=== PATIENT | male | born 1960 | race Caucasian/White ===

== ENCOUNTER 2019-03-25 23:42 | Emergency (ER) | payer MEDICARE, MEDICAID ==
[~2019-03-25] VITALS: Ht 172.7 cm; Wt 90.0 kg
[~2019-03-25 23:42] MED LIST: AZIT500T34 PO; BAC10T PO; CODE118S2 PO; GUAI600T45 PO; OMEP-84 PO; PRED10TA14 PO
[2019-03-26 00:36] LABS: BASOPHILS # (AUTO) 0.2 X10'3 (0-0.2); EOSINOPHILS # (AUTO) 0.2 X10'3 (0-0.9); EOSINOPHILS % (AUTO) 1.9 % (0-6); HEMATOCRIT 41.3 % (42.0-52.0); LYMPHOCYTES # (AUTO) 4.2 X10'3 (1.1-4.8); LYMPHOCYTES % (AUTO) 37.2 % (21-51); MEAN CORPUSCULAR VOLUME 85.5 FL (78-98); MEAN PLATELET VOLUME 9.1 FL (7.4-10.4); NEUTROPHILS # (AUTO) 5.6 X10'3 (1.8-7.7); NEUTROPHILS % (AUTO) 49.9 % (42-75); PLATELET COUNT 245 X10'3 (140-440); RED BLOOD COUNT 4.83 X10'6 (4.70-6.10); RED CELL DISTRIBUTION WIDTH 13.9 % (11.5-14.5); WHITE BLOOD COUNT 11.2 X10'3 (4.5-11.0)
[2019-03-26 00:47] LABS: ALANINE AMINOTRANSFERASE 42 U/L (12-78); ALBUMIN 3.5 G/DL (3.4-5.0); ALBUMIN/GLOBULIN RATIO 1.1 (1.1-1.5); ALKALINE PHOSPHATASE 143 IU/L (46-116); ANION GAP 8 (8-16); ASPARTATE AMINO TRANSFERASE 28 U/L (10-37); BILIRUBIN,TOTAL 0.4 MG/DL (0.1-1.0); BLOOD UREA NITROGEN 12 MG/DL (7-18); BUN/CREATININE RATIO 12.5 (5.4-32.0); CALCIUM 8.2 MG/DL (8.5-10.1); CHLORIDE 108 MMOL/L (99-107); CREATININE 0.96 MG/DL (0.60-1.10); GLUCOSE 97 MG/DL (70-104); POTASSIUM 3.8 MMOL/L (3.5-5.1); SODIUM 139 MMOL/L (135-145); TOTAL CARBON DIOXIDE 22.8 MMOL/L (24-32); TOTAL PROTEIN 6.7 G/DL (6.4-8.2); eGFR 80 ML/MIN
[2019-03-26] MEDS ORDERED: aspirin 325mg tablet PO ONE (00:50)
[2019-03-26 00:53] LABS: PARTIAL THROMBOPLASTIN TIME 29 SECONDS (22-32)
[2019-03-26 01:33] VITALS: BP 171/92
== END 2019-03-26 01:34 | disposition home or self-care (01) ==
LOC: ER 23:42
DX: R07.89 Other chest pain (principal); R42 Dizziness and giddiness; I10 Essential (primary) hypertension; E78.00 Pure hypercholesterolemia, unspecified; K21.9 Gastro-esophageal reflux disease without esophagitis; M19.90 Unspecified osteoarthritis, unspecified site; F17.200 Nicotine dependence, unspecified, uncomplicated; Z88.6 Allergy status to analgesic agent
CPT/HCPCS: 36415; 71045; 80053; 84484; 85025; 85610; 85730; 93005; 99284

== ENCOUNTER 2020-02-17 20:44 | Emergency (ER) | payer MEDICARE, OTHER ==
[~2020-02-17] VITALS: Ht 172.7 cm; Wt 89.3 kg
[2020-02-17 21:19] LABS: BASOPHILS # (AUTO) 0.1 X10'3 (0-0.2); BASOPHILS % (AUTO) 0.9 % (0-1); EOSINOPHILS # (AUTO) 0.1 X10'3 (0-0.9); EOSINOPHILS % (AUTO) 1.4 % (0-6); HEMATOCRIT 42.4 % (42.0-52.0); HEMOGLOBIN 14.4 g/dl (14.0-17.9); LYMPHOCYTES # (AUTO) 3.1 X10'3 (1.1-4.8); LYMPHOCYTES % (AUTO) 32.7 % (21-51); MEAN CORPUSCULAR HEMOGLOBIN 29.5 PG (27.0-31.0); MEAN CORPUSCULAR VOLUME 86.8 FL (78-98); MEAN PLATELET VOLUME 8.7 FL (7.4-10.4); MONOCYTES % (AUTO) 10.2 % (2-12); NEUTROPHILS # (AUTO) 5.2 X10'3 (1.8-7.7); NEUTROPHILS % (AUTO) 54.8 % (42-75); PLATELET COUNT 214 X10'3 (140-440); RED BLOOD COUNT 4.89 X10'6 (4.70-6.10); RED CELL DISTRIBUTION WIDTH 13.5 % (11.5-14.5); WHITE BLOOD COUNT 9.5 X10'3 (4.5-11.0)
[2020-02-17 21:27] LABS: ALANINE AMINOTRANSFERASE 39 U/L (12-78); ALBUMIN 3.6 G/DL (3.4-5.0); ALBUMIN/GLOBULIN RATIO 1.2 (1.1-1.5); ALKALINE PHOSPHATASE 130 IU/L (46-116); ANION GAP 8 (8-16); ASPARTATE AMINO TRANSFERASE 27 U/L (10-37); BILIRUBIN,TOTAL 0.5 MG/DL (0.1-1.0); BLOOD UREA NITROGEN 9 MG/DL (7-18); BUN/CREATININE RATIO 8.8 (5.4-32.0); CALCIUM 8.6 MG/DL (8.5-10.1); CHLORIDE 109 MMOL/L (99-107); CREATININE 1.02 MG/DL (0.60-1.10); GLUCOSE 104 MG/DL (70-104); POTASSIUM 4.1 MMOL/L (3.5-5.1); SODIUM 142 MMOL/L (135-145); TOTAL CARBON DIOXIDE 25.3 MMOL/L (24-32); TOTAL PROTEIN 6.7 G/DL (6.4-8.2); eGFR 74 ML/MIN
[2020-02-17] MEDS ORDERED: metoprolol tartrate 50mg tablet PO ONE (21:35)
[2020-02-17] MEDS ORDERED: metoprolol tartrate 25mg tablet PO ONE (21:35)
[2020-02-17 22:47] VITALS: BP 199/94
== END 2020-02-17 22:40 | disposition home or self-care (01) ==
LOC: ER 20:44
DX: I10 Essential (primary) hypertension (principal); E78.00 Pure hypercholesterolemia, unspecified; K21.9 Gastro-esophageal reflux disease without esophagitis; M19.90 Unspecified osteoarthritis, unspecified site; E78.5 Hyperlipidemia, unspecified; Z88.5 Allergy status to narcotic agent; Z79.2 Long term (current) use of antibiotics; Z79.899 Other long term (current) drug therapy
CPT/HCPCS: 36415; 71045; 80053; 84484; 85025; 93005; 99285

== ENCOUNTER 2022-01-03 08:30 | Inpatient (IN) | payer MEDICARE, MEDICAID ==
[~2022-01-03] VITALS: Ht 175.3 cm; Wt 89.5 kg
[2022-01-03] MEDS ORDERED: metoclopramide 5 mg/ml inj IV ONE (08:55)
[2022-01-03] MEDS ORDERED: famotidine/PF 10 mg/ml inj IV ONE (08:55)
[2022-01-03] MEDS ORDERED: morphine 4 MG/ML inj SYRINge IV ONE (08:55)
[2022-01-03 08:59] LABS: BASOPHILS # (AUTO) 0.1 X10'3 (0-0.2); BASOPHILS % (AUTO) 0.6 % (0-1); EOSINOPHILS % (AUTO) 0.1 % (0-6); HEMATOCRIT 41.6 % (42.0-52.0); LYMPHOCYTES # (AUTO) 1.3 X10'3 (1.1-4.8); LYMPHOCYTES % (AUTO) 8.4 % (21-51); MEAN CORPUSCULAR HEMOGLOBIN 29.6 PG (27.0-31.0); MEAN CORPUSCULAR HGB CONC 33.6 g/dL (33.0-36.5); MEAN CORPUSCULAR VOLUME 87.9 FL (78-98); MEAN PLATELET VOLUME 9.2 FL (7.4-10.4); MONOCYTES # (AUTO) 0.5 X10'3 (0-0.9); NEUTROPHILS % (AUTO) 87.9 % (42-75); PLATELET COUNT 251 X10'3 (140-440); RED BLOOD COUNT 4.73 X10'6 (4.70-6.10); RED CELL DISTRIBUTION WIDTH 13.8 % (11.5-14.5); WHITE BLOOD COUNT 15.9 X10'3 (4.5-11.0)
[2022-01-03 09:12] LABS: ALANINE AMINOTRANSFERASE 32 U/L (12-78); ALBUMIN 3.4 G/DL (3.4-5.0); ALBUMIN/GLOBULIN RATIO 0.9 (1.1-1.5); ANION GAP 13 (8-16); ASPARTATE AMINO TRANSFERASE 21 U/L (10-37); BILIRUBIN,TOTAL 0.3 MG/DL (0.1-1.0); BLOOD UREA NITROGEN 8 MG/DL (7-18); CALCIUM 8.4 MG/DL (8.5-10.1); CHLORIDE 106 MMOL/L (99-107); GLUCOSE 124 MG/DL (70-104); POTASSIUM 3.6 MMOL/L (3.5-5.1); SODIUM 142 MMOL/L (135-145); TOTAL CARBON DIOXIDE 23.4 MMOL/L (24-32); TOTAL PROTEIN 7.2 G/DL (6.4-8.2); eGFR > 90 ML/MIN
[2022-01-03 09:19] LABS: ALKALINE PHOSPHATASE 133 IU/L (46-116)
[2022-01-03 09:45] LABS: LIPASE 61 U/L (73-393)
[2022-01-03] MEDS ORDERED: piperacillin/tazo 3.375gm/50ml 50 ML IV ONE (10:00)
[2022-01-03] MEDS ORDERED: morphine 4 MG/ML inj SYRINge IV PRN (10:10)
[2022-01-03] MEDS ORDERED: ondansetron/PF 4mg/2ml inj IV ONE (10:10)
[2022-01-03] MEDS ORDERED: HYDROmorphone/PF 0.2 MG/ML SYRINGE IV PRN (11:10)
[2022-01-03] MEDS ORDERED: hydrALAZINE 20mg/ml inj. IV PRN (11:10)
[2022-01-03] MEDS ORDERED: magnesium 2GM in 50ml NS 50 ML IV PRN (11:10)
[2022-01-03] MEDS ORDERED: potassium Cl 20 mEq SR tablet PO PRN ×2 (11:10)
[2022-01-03] MEDS ORDERED: potassium CL 10mEq/100ml bag 100 ML IV PRN (11:10)
[2022-01-03] MEDS ORDERED: magnesium 4gm in 100ml NS 100 ML IV PRN (11:10)
[2022-01-03] MEDS ORDERED: HYDROmorphone inj. 0.5 MG/0.5 ML DISP.SYRIN IV PRN (11:10)
[2022-01-03] MEDS ORDERED: ondansetron/PF 4mg/2ml inj IV PRN (11:10)
[2022-01-03] MEDS ORDERED: mag hydrox/Alum hydrox/simeth 30ml oral suspension PO PRN (11:10)
[2022-01-03] MEDS ORDERED: magnesium Cl slow-release 64mg tablet PO PRN (11:10)
[2022-01-03] MEDS ORDERED: acetaminophen 325mg tablet PO PRN (11:10)
[2022-01-03] MEDS ORDERED: magnesium hydroxide 30ml (MOM) UD suspension PO PRN (11:10)
[2022-01-03] MEDS: normal saline 1000ml 1,000 ML IV SCH ×3 (11:24→20:18)
[2022-01-03] MEDS ORDERED: BACL20TA PO (12:30)
[2022-01-03] MEDS ORDERED: LOSA50TA3 PO (12:30)
[2022-01-03] MEDS ORDERED: OMEP40CA21 PO (12:30)
[2022-01-03] MEDS ORDERED: OMEP20CA16 PO (12:30)
[2022-01-03] MEDS ORDERED: CLON-527 PO (12:30)
[2022-01-03] MEDS ORDERED: ATOR40TA PO (12:30)
[2022-01-03] MEDS ORDERED: BUSP10TA11 PO (12:30)
[2022-01-03] MEDS ORDERED: FLO0.4C PO (12:30)
--- NOTE | 2022-01-03 12:31 | NUR ---
med rec completed with pt, pt stated 2weeks ago Dr Landry, PMD, had him decrease losartan from 100mg to 50mg 1 tab qday, pt was complaining of feeling dizzy, has follow up appt on 01/05/21 with PMD
--- NOTE | 2022-01-03 12:33 | NUR ---
paged Dr Wray that med rec was completed
[2022-01-03 12:42] LABS: MAGNESIUM 1.3 MG/DL (1.5-2.4)
[2022-01-03] MEDS ORDERED: LOSA100T57 PO (12:46)
--- NOTE | 2022-01-03 12:50 | NUR ---
ATTEMPTED TO CALL REPORT, RIGO RODRIGUEZ NO AVAILABLE.
[2022-01-03] MEDS: busPIRone 5mg tablet PO SCH ×2 (13:19→20:18)
--- NOTE | 2022-01-03 13:25 | NUR ---
Patient in room ANI 349. I have received report from Josi RODRIGUEZ and had the opportunity to ask questions and assume patient care.
[2022-01-03] MEDS ORDERED: losartan 50mg tablet PO SCH (13:35)
[2022-01-03 14:15] VITALS: BP 113/63
[2022-01-03] MEDS: piperacillin/tazo 3.375gm/50ml 50 ML IV SCH (17:05)
--- NOTE | 2022-01-03 18:58 | NUR ---
wants to think about flu and pneumonia vaccine Addendum: 01/03/22 at 1859 by Brandon Boles RN Amended: Links added.
[2022-01-03 19:49] VITALS: BP 119/59
[2022-01-03] MEDS: K and/or MAG REPLACEMENT MC SCH (20:00)
[2022-01-03] MEDS: docusate sod 100mg capsule PO SCH (20:17)
[2022-01-03] MEDS: baclofen 10mg tablet PO SCH (20:19)
[2022-01-03] MEDS: clonazePAM 1mg tablet PO PRN (21:17)
[2022-01-04] VITALS (18 sets, daily range): BP systolic 125–165; BP diastolic 61–86
[2022-01-04] MEDS: piperacillin/tazo 3.375gm/50ml 50 ML IV SCH ×4 (00:44→23:50)
[2022-01-04] MEDS: normal saline 1000ml 1,000 ML IV SCH (05:38)
--- NOTE | 2022-01-04 05:49 | NUR ---
pT WANTS FLU VACCINE, UNSURE IF WANTS PNEUMONIA VACCINE. Addendum: 01/04/22 at 0549 by Brandon Boles RN Amended: Links added.
--- NOTE | 2022-01-04 06:00 | NUR ---
Patient in room ANI 349. I have received report from Radha RODRIGUEZ and had the opportunity to ask questions and assume patient care.
[2022-01-04 06:29] LABS: BASOPHILS # (AUTO) 0.1 X10'3 (0-0.2); BASOPHILS % (AUTO) 0.5 % (0-1); EOSINOPHILS # (AUTO) 0.1 X10'3 (0-0.9); EOSINOPHILS % (AUTO) 0.5 % (0-6); HEMATOCRIT 38.3 % (42.0-52.0); HEMOGLOBIN 12.7 g/dl (14.0-17.9); LYMPHOCYTES # (AUTO) 2.2 X10'3 (1.1-4.8); LYMPHOCYTES % (AUTO) 9.7 % (21-51); MEAN CORPUSCULAR HEMOGLOBIN 29.4 PG (27.0-31.0); MEAN CORPUSCULAR HGB CONC 33.3 g/dL (33.0-36.5); MEAN CORPUSCULAR VOLUME 88.3 FL (78-98); MEAN PLATELET VOLUME 9.5 FL (7.4-10.4); MONOCYTES # (AUTO) 2.1 X10'3 (0-0.9); MONOCYTES % (AUTO) 9.5 % (2-12); NEUTROPHILS # (AUTO) 17.8 X10'3 (1.8-7.7); NEUTROPHILS % (AUTO) 79.8 % (42-75); PLATELET COUNT 225 X10'3 (140-440); RED BLOOD COUNT 4.34 X10'6 (4.70-6.10); RED CELL DISTRIBUTION WIDTH 13.7 % (11.5-14.5); WHITE BLOOD COUNT 22.3 X10'3 (4.5-11.0)
[2022-01-04 06:32] LABS: ALANINE AMINOTRANSFERASE 25 U/L (12-78); ALBUMIN/GLOBULIN RATIO 1.2 (1.1-1.5); ALKALINE PHOSPHATASE 108 IU/L (46-116); ANION GAP 12 (8-16); ASPARTATE AMINO TRANSFERASE 18 U/L (10-37); BILIRUBIN,TOTAL 1.2 MG/DL (0.1-1.0); BLOOD UREA NITROGEN 11 MG/DL (7-18); BUN/CREATININE RATIO 12.6 (5.4-32.0); CALCIUM 7.9 MG/DL (8.5-10.1); CHLORIDE 107 MMOL/L (99-107); CREATININE 0.87 MG/DL (0.60-1.10); GLUCOSE 99 MG/DL (70-104); POTASSIUM 3.8 MMOL/L (3.5-5.1); SODIUM 143 MMOL/L (135-145); TOTAL CARBON DIOXIDE 23.7 MMOL/L (24-32); TOTAL PROTEIN 5.5 G/DL (6.4-8.2); eGFR 89 ML/MIN
--- NOTE | 2022-01-04 06:36 | NUR ---
Patient in room ANI 349. I have received report from cristino RODRIGUEZ and had the opportunity to ask questions and assume patient care.
--- NOTE | 2022-01-04 06:39 | NUR ---
0600 pt resting in bed. declined pain med overnight. denies nausea . iv patent and infusing . report to rupa anne
[2022-01-04 07:20] LABS: MAGNESIUM 2.4 MG/DL (1.5-2.4)
[2022-01-04 07:30] LABS: TOTAL CELLS COUNTED 100
[2022-01-04 07:31] LABS: PLATELET ESTIMATE NORMAL
[2022-01-04] MEDS: pantoprazole 40mg Tablet.DR PO SCH (07:49)
[2022-01-04] MEDS: busPIRone 5mg tablet PO SCH ×3 (07:49→20:35)
[2022-01-04] MEDS ORDERED: losartan 50mg tablet PO SCH (08:00)
[2022-01-04] MEDS ORDERED: tamsulosin 0.4mg capsule PO SCH (08:00)
[2022-01-04] MEDS: enoxaparin 40mg/0.4ml syringe SUBCUT SCH (08:00)
[2022-01-04] MEDS: clonazePAM 1mg tablet PO PRN ×2 (08:00→20:42)
[2022-01-04] MEDS: K and/or MAG REPLACEMENT MC SCH ×2 (08:00→20:00)
[2022-01-04] MEDS: docusate sod 100mg capsule PO SCH ×2 (08:00→20:35)
[2022-01-04] MEDS ORDERED: atorvastatin 20mg tablet PO SCH (08:00)
--- NOTE | 2022-01-04 09:45 | NUR ---
PAGER ID: [phone] MESSAGE: MAULIK SURG RE: [id number] Lorin, A Patient is a pack a day smoker and would like a nicotine patch. Did you want me to add that medication? Thanks Maulik
[2022-01-04] MEDS ORDERED: nicotine 14mg patch - 24hr TD ONE (09:50)
[2022-01-04] MEDS ORDERED: ringers solution, lacted 1,000 ML IV SCH (09:55)
[2022-01-04] MEDS ORDERED: proCHLORperazine 10 MG/2 ml inj IV PRN (09:55)
[2022-01-04] MEDS ORDERED: morphine 4 MG/ML inj SYRINge IV PRN (09:55)
[2022-01-04] MEDS ORDERED: meperidine/PF 25mg/ml syringe IV PRN ×3 (09:55)
[2022-01-04] MEDS ORDERED: morphine 2 MG/ML inj. syringe IV PRN (09:55)
[2022-01-04] MEDS ORDERED: ondansetron/PF 4mg/2ml inj IV PRN (09:55)
[2022-01-04] MEDS ORDERED: INDOCYANINE GREEN 25 MG/10 ML VIAL IV ONE (10:00)
[2022-01-04] MEDS ORDERED: FLU VACC QS2021-22(6MOS UP)/PF 60 MCG/0.5 ML SYRINGE IM ONE (10:00)
[2022-01-04] MEDS ORDERED: BUPIVAcaine 0.5% inj/PF 30 ML ONE (10:35)
[2022-01-04] MEDS ORDERED: BUPIVAcaine 0.5% inj/PF 30 ml vial IJ ONE (11:00)
--- NOTE | 2022-01-04 11:11 | NUR ---
Patient in room ANI 349. I have received report from Carmen RODRIGUEZ and had the opportunity to ask questions and assume patient care.
[2022-01-04] MEDS ORDERED: dexamethasone sod phosphate 10mg/ml inj ONE (11:15)
[2022-01-04] MEDS ORDERED: ondansetron/PF 4mg/2ml inj ONE (11:15)
[2022-01-04] MEDS ORDERED: sevoflurane 250ml liquid IH ONE (11:15)
[2022-01-04] MEDS ORDERED: midazolam 1 mg/ML 2ml injection ONE (11:29)
[2022-01-04] MEDS ORDERED: fentaNYL /PF 50mcg/ml 5ml ampule ONE (11:29)
[2022-01-04] MEDS ORDERED: LIDOcaine 2% (20mg/ml) 5ml vial ONE (11:31)
[2022-01-04] MEDS ORDERED: propofol inj 20 ML IV ONE (11:31)
[2022-01-04] MEDS ORDERED: rocuronium 10mg/ml inj IV ONE ×2 (11:42→13:11)
[2022-01-04] MEDS ORDERED: ePHEDrine 50MG/ML INJ. ONE (12:59)
[2022-01-04] MEDS ORDERED: glycopyrrolate 0.2mg/ml inj ONE (13:23)
[2022-01-04] MEDS ORDERED: neostigmine methylsulfate 1 MG/ML 10ml vial ONE (13:23)
--- NOTE | 2022-01-04 13:31 | NUR ---
Received from OR via , accompanied by Anesthesiologist DR SALDANA and report given by Anesthesiolgist. PT AROUSES TO VOICE, SKIN WARM AND PINK, MOVING EXT X 4, 4 BANDAIDS ON ABD CD, GABRIEL DRAIN WITH SANQ FLUID, SCD'S PULSES +3, NO C/O PAIN, VSS.
--- NOTE | 2022-01-04 14:01 | NUR ---
Report called to receiving nurse. Transferred via BED Belongings . Special Issues communicated to receiving nurse SHREYA RN. PT IS SLEEPY BUT WAKES EASILY, KIERAN ICE WATER, PAIN MIN, VSS, DRESSING CD, GABRIEL DRAIN EMPTIED PRIOR TO TRANSER WITH 30ML SANQ DRAINAGE, PIV PATENT. PT MEETS DISCHARGE CRITERIA.
--- NOTE | 2022-01-04 14:18 | NUR ---
Patient recieved from recovery. Patient stable. No bowel sounds right now. Patient resting comfortably. Post op VS started.
[2022-01-04] MEDS: HYDROcodone/acetaminophen 10/325mg tab PO PRN ×2 (16:45→21:00)
--- NOTE | 2022-01-04 18:15 | NUR ---
Problems reprioritized. Patient report given, questions answered & plan of care reviewed with Ja RODRIGUEZ.
--- NOTE | 2022-01-04 18:19 | NUR ---
Student documentation: I have reviewed and agree with all interventions, assessments performed and documented by Benedicto RODRIGUEZ.
[2022-01-04] MEDS: diphenhydrAMINE 25mg capsule PO PRN (19:11)
[2022-01-04] MEDS: losartan 50mg tablet PO SCH (20:36)
[2022-01-04] MEDS: atorvastatin 20mg tablet PO SCH (20:36)
[2022-01-04] MEDS: tamsulosin 0.4mg capsule PO SCH (20:38)
[2022-01-04] MEDS: baclofen 10mg tablet PO SCH (20:39)
[2022-01-04] MEDS ORDERED: diphenhydrAMINE 25mg capsule PO ONE (21:45)
[2022-01-05] VITALS: BP 106/61
[2022-01-05] MEDS: normal saline 1000ml 1,000 ML IV SCH ×3 (02:54→23:10)
[2022-01-05] MEDS: diphenhydrAMINE 25mg capsule PO PRN ×3 (03:50→20:34)
[2022-01-05] MEDS: HYDROcodone/acetaminophen 10/325mg tab PO PRN ×3 (03:55→20:35)
--- NOTE | 2022-01-05 06:15 | NUR ---
Problems reprioritized. Patient report given, questions answered & plan of care reviewed with APPLE. Addendum: 01/05/22 at 0615 by Benedicto Bonilla RN Amended: Links added.
--- NOTE | 2022-01-05 06:20 | NUR ---
Patient in room ANI 349. I have received report from TYREL RODRIGUEZ and had the opportunity to ask questions and assume patient care.
[2022-01-05 06:46] LABS: BASOPHILS % (AUTO) 0.1 % (0-1); EOSINOPHILS % (AUTO) 0 % (0-6); HEMATOCRIT 35.9 % (42.0-52.0); HEMOGLOBIN 12.1 g/dl (14.0-17.9); LYMPHOCYTES # (AUTO) 1.1 X10'3 (1.1-4.8); LYMPHOCYTES % (AUTO) 4.6 % (21-51); MEAN CORPUSCULAR HEMOGLOBIN 29.7 PG (27.0-31.0); MEAN CORPUSCULAR HGB CONC 33.7 g/dL (33.0-36.5); MEAN CORPUSCULAR VOLUME 88.1 FL (78-98); MEAN PLATELET VOLUME 9.6 FL (7.4-10.4); MONOCYTES # (AUTO) 1.5 X10'3 (0-0.9); MONOCYTES % (AUTO) 6.2 % (2-12); NEUTROPHILS % (AUTO) 89.1 % (42-75); PLATELET COUNT 218 X10'3 (140-440); RED BLOOD COUNT 4.08 X10'6 (4.70-6.10); RED CELL DISTRIBUTION WIDTH 13.7 % (11.5-14.5); WHITE BLOOD COUNT 23.5 X10'3 (4.5-11.0)
[2022-01-05 06:53] LABS: ALANINE AMINOTRANSFERASE 34 U/L (12-78); ALBUMIN 3.1 G/DL (3.4-5.0); ALKALINE PHOSPHATASE 103 IU/L (46-116); ANION GAP 11 (8-16); ASPARTATE AMINO TRANSFERASE 33 U/L (10-37); BILIRUBIN,TOTAL 0.9 MG/DL (0.1-1.0); BLOOD UREA NITROGEN 11 MG/DL (7-18); BUN/CREATININE RATIO 13.8 (5.4-32.0); CALCIUM 8.2 MG/DL (8.5-10.1); CHLORIDE 107 MMOL/L (99-107); GLUCOSE 120 MG/DL (70-104); POTASSIUM 4.4 MMOL/L (3.5-5.1); SODIUM 142 MMOL/L (135-145); TOTAL CARBON DIOXIDE 23.9 MMOL/L (24-32); TOTAL PROTEIN 6.1 G/DL (6.4-8.2); eGFR > 90 ML/MIN
[2022-01-05] MEDS: docusate sod 100mg capsule PO SCH ×2 (07:19→19:11)
[2022-01-05] MEDS: pantoprazole 40mg Tablet.DR PO SCH (07:19)
[2022-01-05] MEDS: piperacillin/tazo 3.375gm/50ml 50 ML IV SCH ×3 (07:20→23:58)
[2022-01-05] MEDS: enoxaparin 40mg/0.4ml syringe SUBCUT SCH (07:20)
[2022-01-05] MEDS: busPIRone 5mg tablet PO SCH ×3 (07:20→20:34)
[2022-01-05] MEDS: nicotine 14mg patch - 24hr TD SCH (07:25)
[2022-01-05 08:00] VITALS: BP 144/80
[2022-01-05] MEDS: K and/or MAG REPLACEMENT MC SCH ×2 (08:00→18:13)
[2022-01-05] MEDS ORDERED: FLU VACC QS2021-22(6MOS UP)/PF 60 MCG/0.5 ML SYRINGE IM ONE ×2 (10:00→15:55)
[2022-01-05 11:41] VITALS: BP 131/77
--- NOTE | 2022-01-05 18:08 | NUR ---
Problems reprioritized. Patient report given, questions answered & plan of care reviewed with gracie anne.
--- NOTE | 2022-01-05 18:14 | NUR ---
Student documentation: I have reviewed and agree with all interventions, assessments performed and documented by Benedicto RODRIGUEZ.
[2022-01-05] MEDS: tamsulosin 0.4mg capsule PO SCH (19:10)
[2022-01-05] MEDS: atorvastatin 20mg tablet PO SCH (19:11)
[2022-01-05] MEDS: losartan 50mg tablet PO SCH (19:11)
[2022-01-05 20:00] VITALS: BP 146/69
[2022-01-05] MEDS: baclofen 10mg tablet PO SCH (20:34)
[2022-01-06] VITALS: BP 114/51
[2022-01-06] MEDS: diphenhydrAMINE 25mg capsule PO PRN ×2 (03:30→21:18)
[2022-01-06] MEDS: HYDROcodone/acetaminophen 10/325mg tab PO PRN ×3 (03:30→22:36)
[2022-01-06] MEDS: normal saline 1000ml 1,000 ML IV SCH (03:31)
[2022-01-06] MEDS: clonazePAM 1mg tablet PO PRN ×3 (04:04→21:18)
--- NOTE | 2022-01-06 06:08 | NUR ---
Problems reprioritized. Patient report given, questions answered & plan of care reviewed with DELMI. Addendum: 01/06/22 at 0608 by Benedicto Bonilla RN Amended: Links added.
[2022-01-06 06:43] LABS: BASOPHILS # (AUTO) 0.1 X10'3 (0-0.2); BASOPHILS % (AUTO) 0.4 % (0-1); EOSINOPHILS # (AUTO) 0.1 X10'3 (0-0.9); EOSINOPHILS % (AUTO) 0.4 % (0-6); HEMATOCRIT 30.8 % (42.0-52.0); HEMOGLOBIN 10.4 g/dl (14.0-17.9); LYMPHOCYTES # (AUTO) 2.7 X10'3 (1.1-4.8); MEAN CORPUSCULAR HEMOGLOBIN 29.7 PG (27.0-31.0); MEAN CORPUSCULAR HGB CONC 33.7 g/dL (33.0-36.5); MEAN CORPUSCULAR VOLUME 88.1 FL (78-98); MEAN PLATELET VOLUME 9.4 FL (7.4-10.4); MONOCYTES # (AUTO) 1.3 X10'3 (0-0.9); MONOCYTES % (AUTO) 7.6 % (2-12); NEUTROPHILS # (AUTO) 13.6 X10'3 (1.8-7.7); NEUTROPHILS % (AUTO) 76.6 % (42-75); PLATELET COUNT 204 X10'3 (140-440); RED CELL DISTRIBUTION WIDTH 13.5 % (11.5-14.5); WHITE BLOOD COUNT 17.7 X10'3 (4.5-11.0)
[2022-01-06 07:00] VITALS: BP 190/95
[2022-01-06 07:10] LABS: ALANINE AMINOTRANSFERASE 34 U/L (12-78); ALBUMIN 2.5 G/DL (3.4-5.0); ALKALINE PHOSPHATASE 89 IU/L (46-116); ANION GAP 10 (8-16); ASPARTATE AMINO TRANSFERASE 34 U/L (10-37); BILIRUBIN,TOTAL 0.5 MG/DL (0.1-1.0); BLOOD UREA NITROGEN 10 MG/DL (7-18); BUN/CREATININE RATIO 12.2 (5.4-32.0); CALCIUM 7.1 MG/DL (8.5-10.1); CHLORIDE 110 MMOL/L (99-107); CREATININE 0.82 MG/DL (0.60-1.10); GLUCOSE 80 MG/DL (70-104); POTASSIUM 3.8 MMOL/L (3.5-5.1); SODIUM 144 MMOL/L (135-145); TOTAL CARBON DIOXIDE 24.4 MMOL/L (24-32); eGFR > 90 ML/MIN
--- NOTE | 2022-01-06 07:37 | NUR ---
PAGER ID: [phone] MESSAGE: [id number]. Patient bp 190/95. Hospital out of IV hydralazine. Can you review med rec? Hyacinth RODRIGUEZ [id number]
[2022-01-06] MEDS: K and/or MAG REPLACEMENT MC SCH ×2 (08:00→19:45)
[2022-01-06] MEDS ORDERED: amLODIPine 5mg tablet PO ONE ×2 (08:00→08:05)
[2022-01-06] MEDS: nicotine 14mg patch - 24hr TD SCH (08:11)
[2022-01-06] MEDS: pantoprazole 40mg Tablet.DR PO SCH (08:12)
[2022-01-06] MEDS: docusate sod 100mg capsule PO SCH ×2 (08:12→19:46)
[2022-01-06] MEDS: busPIRone 5mg tablet PO SCH ×3 (08:12→21:18)
[2022-01-06] MEDS: enoxaparin 40mg/0.4ml syringe SUBCUT SCH (08:13)
[2022-01-06] MEDS: piperacillin/tazo 3.375gm/50ml 50 ML IV SCH ×2 (08:14→16:06)
--- NOTE | 2022-01-06 08:33 | NUR ---
PAGED DR SANTIAGO RE: PAGER ID: [phone] MESSAGE: ARTEM CANO. NEW ONSET SOB. 93% ROOM AIR. SURGICAL [id number]
[2022-01-06 11:36] VITALS: BP 182/106
[2022-01-06] MEDS ORDERED: ipratropium/albuterol 3ml nebule NEB STA (11:48)
[2022-01-06] MEDS ORDERED: furosemide 40mg/4ml inj IV ONE (11:50)
--- NOTE | 2022-01-06 12:03 | NUR ---
Notified RT in person regarding stat breathing treatment.
[2022-01-06] MEDS: ipratropium/albuterol 3ml nebule NEB SCH ×2 (16:36→19:29)
[2022-01-06 17:20] VITALS: BP 165/82
[2022-01-06 18:00] VITALS: BP 162/71
--- NOTE | 2022-01-06 18:29 | NUR ---
Problems reprioritized. Patient report given, questions answered & plan of care reviewed with Doreen RODRIGUEZ.
[2022-01-06] MEDS: losartan 50mg tablet PO SCH (19:47)
[2022-01-06] MEDS: tamsulosin 0.4mg capsule PO SCH (19:48)
[2022-01-06] MEDS: atorvastatin 20mg tablet PO SCH (19:48)
[2022-01-06] MEDS: baclofen 10mg tablet PO SCH (21:00)
[2022-01-07] VITALS (7 sets, daily range): BP systolic 145–171; BP diastolic 65–75
[2022-01-07] MEDS: piperacillin/tazo 3.375gm/50ml 50 ML IV SCH ×3 (00:01→16:04)
[2022-01-07] MEDS: ipratropium/albuterol 3ml nebule NEB SCH ×4 (02:00→19:52)
[2022-01-07] MEDS: HYDROcodone/acetaminophen 10/325mg tab PO PRN ×2 (03:42→20:28)
[2022-01-07] MEDS: diphenhydrAMINE 25mg capsule PO PRN ×2 (03:44→20:27)
--- NOTE | 2022-01-07 06:20 | NUR ---
Problems reprioritized. Patient report given, questions answered & plan of care reviewed with Rashmi.
[2022-01-07 06:44] LABS: BASOPHILS # (AUTO) 0.1 X10'3 (0-0.2); BASOPHILS % (AUTO) 1.1 % (0-1); EOSINOPHILS # (AUTO) 0.2 X10'3 (0-0.9); EOSINOPHILS % (AUTO) 1.9 % (0-6); HEMOGLOBIN 11.7 g/dl (14.0-17.9); LYMPHOCYTES # (AUTO) 2.5 X10'3 (1.1-4.8); LYMPHOCYTES % (AUTO) 19.9 % (21-51); MEAN CORPUSCULAR HEMOGLOBIN 29.7 PG (27.0-31.0); MEAN CORPUSCULAR HGB CONC 34.5 g/dL (33.0-36.5); MEAN CORPUSCULAR VOLUME 86.1 FL (78-98); MEAN PLATELET VOLUME 9.2 FL (7.4-10.4); MONOCYTES # (AUTO) 1.4 X10'3 (0-0.9); NEUTROPHILS # (AUTO) 8.2 X10'3 (1.8-7.7); NEUTROPHILS % (AUTO) 66.1 % (42-75); PLATELET COUNT 248 X10'3 (140-440); RED BLOOD COUNT 3.95 X10'6 (4.70-6.10); RED CELL DISTRIBUTION WIDTH 13.7 % (11.5-14.5); WHITE BLOOD COUNT 12.3 X10'3 (4.5-11.0)
--- NOTE | 2022-01-07 06:52 | NUR ---
Patient in room ANI 349. I have received report from Radha RODRIGUEZ and had the opportunity to ask questions and assume patient care.
[2022-01-07 07:10] LABS: ALANINE AMINOTRANSFERASE 35 U/L (12-78); ALBUMIN 2.7 G/DL (3.4-5.0); ALBUMIN/GLOBULIN RATIO 0.8 (1.1-1.5); ANION GAP 13 (8-16); ASPARTATE AMINO TRANSFERASE 26 U/L (10-37); BLOOD UREA NITROGEN 8 MG/DL (7-18); CALCIUM 8.1 MG/DL (8.5-10.1); CHLORIDE 104 MMOL/L (99-107); GLUCOSE 85 MG/DL (70-104); POTASSIUM 3.1 MMOL/L (3.5-5.1); SODIUM 143 MMOL/L (135-145); TOTAL CARBON DIOXIDE 25.9 MMOL/L (24-32); TOTAL PROTEIN 5.9 G/DL (6.4-8.2); eGFR > 90 ML/MIN
[2022-01-07] MEDS: enoxaparin 40mg/0.4ml syringe SUBCUT SCH (07:53)
[2022-01-07] MEDS: busPIRone 5mg tablet PO SCH ×3 (07:54→20:14)
[2022-01-07] MEDS: docusate sod 100mg capsule PO SCH ×2 (07:54→20:09)
[2022-01-07] MEDS: nicotine 14mg patch - 24hr TD SCH (07:54)
[2022-01-07] MEDS: K and/or MAG REPLACEMENT MC SCH ×2 (08:00→19:53)
[2022-01-07] MEDS: pantoprazole 40mg Tablet.DR PO SCH (08:04)
[2022-01-07] MEDS ORDERED: magnesium 4gm in 100ml NS 100 ML IV PRN (09:10)
[2022-01-07] MEDS ORDERED: magnesium 2GM in 50ml NS 50 ML IV PRN (09:10)
[2022-01-07] MEDS ORDERED: potassium CL 10mEq/100ml bag 100 ML IV PRN (09:10)
[2022-01-07] MEDS ORDERED: potassium Cl 20 mEq SR tablet PO PRN ×2 (09:10)
[2022-01-07] MEDS ORDERED: magnesium Cl slow-release 64mg tablet PO PRN (09:10)
[2022-01-07] MEDS ORDERED: NOR5T PO (09:41)
[2022-01-07] MEDS ORDERED: ALBU8.5H17 IH (09:41)
--- NOTE | 2022-01-07 10:12 | NUR ---
Problems reprioritized. Patient report given, questions answered & plan of care reviewed with Elliot RODRIGUEZ traveler.
--- NOTE | 2022-01-07 10:16 | NUR ---
called Dr Palacios and left message to call back. Pt is being SARAHI GALLARDO in place need Dr. Palacios to authorize removal. Pt given to Elliot Kimble traveler.
[2022-01-07] MEDS: normal saline 1000ml 1,000 ML IV SCH (11:53)
[2022-01-07] MEDS: clonazePAM 1mg tablet PO PRN (16:26)
[2022-01-07] MEDS: losartan 50mg tablet PO SCH (20:13)
[2022-01-07] MEDS: atorvastatin 20mg tablet PO SCH (20:15)
[2022-01-07] MEDS: tamsulosin 0.4mg capsule PO SCH (20:15)
[2022-01-07] MEDS: baclofen 10mg tablet PO SCH (20:16)
[2022-01-08] VITALS: BP 144/59
[2022-01-08] MEDS: piperacillin/tazo 3.375gm/50ml 50 ML IV SCH ×4 (00:56→23:22)
[2022-01-08] MEDS: HYDROcodone/acetaminophen 10/325mg tab PO PRN ×3 (01:01→23:21)
[2022-01-08] MEDS: clonazePAM 1mg tablet PO PRN ×2 (01:14→20:06)
[2022-01-08] MEDS: ipratropium/albuterol 3ml nebule NEB SCH ×4 (02:58→20:21)
[2022-01-08 06:26] LABS: BASOPHILS # (AUTO) 0.1 X10'3 (0-0.2); EOSINOPHILS # (AUTO) 0.4 X10'3 (0-0.9); EOSINOPHILS % (AUTO) 3.5 % (0-6); HEMATOCRIT 36.2 % (42.0-52.0); HEMOGLOBIN 12.2 g/dl (14.0-17.9); LYMPHOCYTES # (AUTO) 2.4 X10'3 (1.1-4.8); LYMPHOCYTES % (AUTO) 22.7 % (21-51); MEAN CORPUSCULAR HGB CONC 33.8 g/dL (33.0-36.5); MEAN CORPUSCULAR VOLUME 88.8 FL (78-98); MEAN PLATELET VOLUME 8.9 FL (7.4-10.4); MONOCYTES # (AUTO) 1.3 X10'3 (0-0.9); MONOCYTES % (AUTO) 12.3 % (2-12); NEUTROPHILS # (AUTO) 6.4 X10'3 (1.8-7.7); NEUTROPHILS % (AUTO) 60.5 % (42-75); PLATELET COUNT 257 X10'3 (140-440); RED BLOOD COUNT 4.07 X10'6 (4.70-6.10); RED CELL DISTRIBUTION WIDTH 13.5 % (11.5-14.5); WHITE BLOOD COUNT 10.5 X10'3 (4.5-11.0)
[2022-01-08 06:30] VITALS: BP 178/71
[2022-01-08 06:35] LABS: ALANINE AMINOTRANSFERASE 46 U/L (12-78); ALBUMIN 2.7 G/DL (3.4-5.0); ALBUMIN/GLOBULIN RATIO 1.1 (1.1-1.5); ALKALINE PHOSPHATASE 117 IU/L (46-116); ANION GAP 10 (8-16); ASPARTATE AMINO TRANSFERASE 44 U/L (10-37); BILIRUBIN,TOTAL 0.8 MG/DL (0.1-1.0); BLOOD UREA NITROGEN 9 MG/DL (7-18); BUN/CREATININE RATIO 10.8 (5.4-32.0); CALCIUM 8.2 MG/DL (8.5-10.1); CHLORIDE 106 MMOL/L (99-107); CREATININE 0.83 MG/DL (0.60-1.10); GLUCOSE 90 MG/DL (70-104); SODIUM 141 MMOL/L (135-145); TOTAL CARBON DIOXIDE 25.4 MMOL/L (24-32); TOTAL PROTEIN 5.2 G/DL (6.4-8.2); eGFR > 90 ML/MIN
--- NOTE | 2022-01-08 06:36 | NUR ---
Patient in room ANI 349. I have received report from JENNIFER Soler and had the opportunity to ask questions and assume patient care.
--- NOTE | 2022-01-08 07:00 | NUR ---
received report from enma RODRIGUEZ.
[2022-01-08] MEDS ORDERED: sincalide inj 1.8 MCG in normal saline 50ml IV soln 50 ML IV ONE (07:10)
[2022-01-08] MEDS: K and/or MAG REPLACEMENT MC SCH ×2 (08:00→19:34)
[2022-01-08] MEDS: busPIRone 5mg tablet PO SCH ×3 (09:57→20:07)
[2022-01-08] MEDS: docusate sod 100mg capsule PO SCH ×2 (09:57→20:07)
[2022-01-08] MEDS: enoxaparin 40mg/0.4ml syringe SUBCUT SCH (09:57)
[2022-01-08] MEDS: pantoprazole 40mg Tablet.DR PO SCH (09:57)
[2022-01-08] MEDS: nicotine 14mg patch - 24hr TD SCH (09:58)
[2022-01-08 11:30] VITALS: BP 171/68
--- NOTE | 2022-01-08 11:50 | NUR ---
Gave report to nursing teacher.
--- NOTE | 2022-01-08 12:19 | NUR ---
Initial: Pt admit dx cholecystitis w/ cholelithiasis, HTN, hyperlipidemia, and GERD, s/p laparoscopic cholecystectomy per EMR. PO intake ~81% avg of heart healthy meals since advancement 01/06 though PO improving ~97% past 4 meals, meeting estimated nutritional needs. LBM 01/08, receiving routine bowel care. Will continue to monitor. Recommendations: 1. Continue heart healthy diet as tolerated 2. Routine bowel care 3. Weekly wt Addendum: 01/08/22 at [address] Amended: Links added. Addendum: 01/08/22 at [address] KAVYA has reviewed and approves of above note.
--- NOTE | 2022-01-08 15:37 | NUR ---
pt transported to [facility] scan via wheelchair. all belongings left in room 349A
--- NOTE | 2022-01-08 17:18 | NUR ---
Charting by Checo VARGAS reviewed by Evangelina Mejia RN
[2022-01-08 18:00] VITALS: BP 124/64
--- NOTE | 2022-01-08 18:13 | NUR ---
Problems reprioritized. Patient report given, questions answered & plan of care reviewed with JENNIFER Soler.
[2022-01-08] MEDS: diphenhydrAMINE 25mg capsule PO PRN (19:03)
[2022-01-08] MEDS: baclofen 10mg tablet PO SCH (20:06)
[2022-01-08] MEDS: tamsulosin 0.4mg capsule PO SCH (20:07)
[2022-01-08] MEDS: atorvastatin 20mg tablet PO SCH (20:07)
[2022-01-08] MEDS: losartan 50mg tablet PO SCH (20:10)
[2022-01-08] MEDS: normal saline 1000ml 1,000 ML IV SCH (23:22)
[2022-01-08 23:31] VITALS: BP 124/64
[2022-01-09] VITALS: BP 125/56
[2022-01-09] MEDS: ipratropium/albuterol 3ml nebule NEB SCH ×2 (02:00→07:25)
[2022-01-09] MEDS: HYDROcodone/acetaminophen 10/325mg tab PO PRN ×2 (04:19→08:58)
[2022-01-09] MEDS: diphenhydrAMINE 25mg capsule PO PRN (04:20)
--- NOTE | 2022-01-09 06:29 | NUR ---
Patient in room ANI 349. I have received report from JENNIFER Soler and had the opportunity to ask questions and assume patient care.
[2022-01-09 07:00] VITALS: BP 152/66
[2022-01-09] MEDS: K and/or MAG REPLACEMENT MC SCH (08:00)
[2022-01-09] MEDS: piperacillin/tazo 3.375gm/50ml 50 ML IV SCH (08:58)
[2022-01-09] MEDS: busPIRone 5mg tablet PO SCH (08:58)
[2022-01-09] MEDS: docusate sod 100mg capsule PO SCH (08:58)
[2022-01-09] MEDS: pantoprazole 40mg Tablet.DR PO SCH (08:58)
[2022-01-09] MEDS: nicotine 14mg patch - 24hr TD SCH (08:59)
[2022-01-09] MEDS: enoxaparin 40mg/0.4ml syringe SUBCUT SCH (08:59)
[2022-01-09] MEDS: clonazePAM 1mg tablet PO PRN (09:00)
--- NOTE | 2022-01-09 09:20 | NUR ---
SARAHI drain DC'd per Dr Garcia order. Pt tolerated well. 10cc's serosanguineous drainage emptied. Incision covered with gauze and tape. Will continue to monitor.
[2022-01-09 11:00] VITALS: BP 176/78
--- NOTE | 2022-01-09 13:00 | NUR ---
Pt discharged to home, with all belongings, in private vehicle, accompanied by . Discharge instructions and medications reviewed. New prescriptions sent to [facility] [address]. Pt instructed to follow up with Dr Salcedo on January 14, phone number provided. Signs and symptoms of infection reviewed with patient, with instructions to notify Dr Salcedo's office with any concerns. Pt states understanding and willingness to comply with all discharge instructions. IV DC'd, cannula intact. Pt escorted to front lobby via wheelchair by student RN.
== END 2022-01-09 12:57 | disposition home or self-care (01) | DRG 854 ==
LOC: ER 08:31 → ED HOLD 11:09 → SUR 3N 13:32 → OBSVTOIN 01-05 15:00
PROVIDERS: ADMIT Family Medicine; ATTEND Family Medicine
PROC: 8E0W4CZ Robotic Assisted Procedure of Trunk Region, Percutaneous Endoscopic Approach (ICD-10-PCS; 2022-01-04)
PROC: 0FT44ZZ Resection of Gallbladder, Percutaneous Endoscopic Approach (ICD-10-PCS; principal; 2022-01-04 11:15)
PROC: 3E02340 Introduction of Influenza Vaccine into Muscle, Percutaneous Approach (ICD-10-PCS; 2022-01-05)
PROC: CF1C1ZZ Planar Nuclear Medicine Imaging of Hepatobiliary System, All using Technetium 99m (Tc-99m) (ICD-10-PCS; 2022-01-08)
DX: A41.9 Sepsis, unspecified organism (principal); K80.00 Calculus of gallbladder with acute cholecystitis without obstruction; J44.1 Chronic obstructive pulmonary disease with (acute) exacerbation; Z20.822 Contact with and (suspected) exposure to COVID-19; F17.210 Nicotine dependence, cigarettes, uncomplicated; G47.30 Sleep apnea, unspecified; E78.00 Pure hypercholesterolemia, unspecified; E78.5 Hyperlipidemia, unspecified; I10 Essential (primary) hypertension; F41.9 Anxiety disorder, unspecified; N40.0 Benign prostatic hyperplasia without lower urinary tract symptoms; K21.9 Gastro-esophageal reflux disease without esophagitis; M19.90 Unspecified osteoarthritis, unspecified site; Z23 Encounter for immunization; Z88.5 Allergy status to narcotic agent; Z79.899 Other long term (current) drug therapy; Z71.6 Tobacco abuse counseling
CPT/HCPCS: 36415; 71045; 74176; 76700; 78226; 80053; 82948; 83690; 83735; 83880; 84132; 84484; 85007; 85025; 87081; 87635; 88304; 93005; 94640; 94760; 96365; 96375; 99285; A4215; A4618; A6402; A7000; A9537; G0378; J0360; J1100; J1170; J1650; J1940; J2250; J2270; J2405; J2543; J2704; J2710; J2765; J3010; J3475; J3490; J7030; J7120; Q0163; S0020

== ENCOUNTER 2022-02-05 22:20 | Emergency (ER) | payer MEDICARE, MEDICAID ==
[~2022-02-05] VITALS: Ht 175.3 cm; Wt 85.5 kg
[~2022-02-05 22:20] MED LIST changes: +ALBU8.5H17 IH; +ATOR40TA PO; -AZIT500T34 PO; -BAC10T PO; +BACL20TA PO; +BUSP10TA11 PO; +CLON-527 PO; -CODE118S2 PO; +FLO0.4C PO; -GUAI600T45 PO; +LOSA100T57 PO; -OMEP-84 PO; +OMEP20CA16 PO; -PRED10TA14 PO
[2022-02-06 00:13] VITALS: BP 120/80
== END 2022-02-06 00:16 | disposition home or self-care (01) ==
LOC: ER 22:21
DX: Z48.00 Encounter for change or removal of nonsurgical wound dressing (principal); K80.00 Calculus of gallbladder with acute cholecystitis without obstruction; E78.00 Pure hypercholesterolemia, unspecified; I10 Essential (primary) hypertension; J44.9 Chronic obstructive pulmonary disease, unspecified; K21.9 Gastro-esophageal reflux disease without esophagitis; M19.90 Unspecified osteoarthritis, unspecified site; F41.9 Anxiety disorder, unspecified; Z90.49 Acquired absence of other specified parts of digestive tract; Z88.5 Allergy status to narcotic agent; Z79.899 Other long term (current) drug therapy
CPT/HCPCS: 99281

== ENCOUNTER 2023-01-28 20:58 | Emergency (ER) | payer MEDICARE, MEDICAID ==
[~2023-01-28] VITALS: Ht 172.7 cm; Wt 93.4 kg
[2023-01-28 21:31] LABS: BASOPHILS # (AUTO) 0.1 X10'3 (0-0.2); BASOPHILS % (AUTO) 1.4 % (0-1); EOSINOPHILS # (AUTO) 0.2 X10'3 (0-0.9); EOSINOPHILS % (AUTO) 1.9 % (0-6); HEMATOCRIT 41.9 % (42.0-52.0); HEMOGLOBIN 14.2 g/dl (14.0-17.9); LYMPHOCYTES # (AUTO) 2.8 X10'3 (1.1-4.8); LYMPHOCYTES % (AUTO) 25.3 % (21-51); MEAN CORPUSCULAR HEMOGLOBIN 29.7 PG (27.0-31.0); MEAN CORPUSCULAR HGB CONC 33.9 g/dL (33.0-36.5); MEAN CORPUSCULAR VOLUME 87.6 FL (78-98); MEAN PLATELET VOLUME 9.3 FL (7.4-10.4); MONOCYTES # (AUTO) 1.2 X10'3 (0-0.9); MONOCYTES % (AUTO) 10.6 % (2-12); NEUTROPHILS # (AUTO) 6.6 X10'3 (1.8-7.7); NEUTROPHILS % (AUTO) 60.8 % (42-75); PLATELET COUNT 225 X10'3 (140-440); RED BLOOD COUNT 4.78 X10'6 (4.70-6.10); RED CELL DISTRIBUTION WIDTH 13.5 % (11.5-14.5); WHITE BLOOD COUNT 10.9 X10'3 (4.5-11.0)
[2023-01-28 21:46] VITALS: BP 201/93
[2023-01-28 21:55] LABS: ALANINE AMINOTRANSFERASE 35 U/L (12-78); ALBUMIN 3.5 G/DL (3.4-5.0); ALBUMIN/GLOBULIN RATIO 1.1 (1.1-1.5); ALKALINE PHOSPHATASE 131 IU/L (46-116); ANION GAP 6 (8-16); ASPARTATE AMINO TRANSFERASE 27 U/L (10-37); BILIRUBIN,TOTAL 0.4 MG/DL (0.1-1.0); BLOOD UREA NITROGEN 8 MG/DL (7-18); BUN/CREATININE RATIO 9.9 (5.4-32.0); CALCIUM 8.3 MG/DL (8.5-10.1); CHLORIDE 109 MMOL/L (99-107); CREATININE 0.81 MG/DL (0.60-1.10); GLUCOSE 96 MG/DL (70-104); SODIUM 143 MMOL/L (135-145); TOTAL PROTEIN 6.6 G/DL (6.4-8.2); eGFR > 90 ML/MIN
[2023-01-28 21:57] LABS: MAGNESIUM 1.9 MG/DL (1.5-2.4)
== END 2023-01-29 00:43 | disposition left against medical advice (07) ==
LOC: ER 20:58
DX: R07.89 Other chest pain (principal); I10 Essential (primary) hypertension; Z53.21 Procedure and treatment not carried out due to patient leaving prior to being seen by health care provider
CPT/HCPCS: 36415; 80053; 83735; 83880; 84484; 85025; 93005; 99281

== ENCOUNTER 2025-10-01 09:48 | Inpatient (IN) | payer MEDICARE, MEDICAID ==
[~2025-10-01] VITALS: Ht 167.6 cm; Wt 86.8 kg
[~2025-10-01 09:48] MED LIST changes: -ALBU8.5H17 IH; +CARV3.12 PO; +CLOP75TA34 PO; -FLO0.4C PO; +FURO20TA4 PO; -LOSA100T57 PO; +NITR0.4T51 SL; -OMEP20CA16 PO; +RANO500T6 PO; +TAMS-55 PO
--- NOTE | 2025-10-01 10:25 | Physician Documentation ---
History of Present Illness CC: NAREN BALTAZAR MD ~ Chief Complaint: Stroke Alert Stated Complaint: MUSCLE CRAMP Time Seen by MD: 10:25 OK to notify your PCP?: Yes Primary Medical Doctor: Alt Source: patient Mode of Arrival: POV Exam Limitations: no limitations HPI 65-year-old male with past medical history of hyperlipidemia, hypertension, GERD, anxiety, CAD status post CABG presented to the ER with complaints of slurring of speech which was noticed by his brother and when they had a difficulty in holding a conversation on last night around 9:00 p.m for a few minutes and then he is doing fine in the morning but we still noticed some slurring of speech while speaking in the ER. He also complaining of the dizziness for while subsided now. He denied weakness of limbs, deviation of angle of mouth, seizures, drooling of saliva, chest pain, shortness of breath, pedal edema, palpitations, wheezing, cough, fever, vomiting. Medication Reconciliation Allergies: Coded Allergies: codeine (Verified Allergy, Mild, ITCH, 01/28/23) Scheduled Atorvastatin Calcium* (Lipitor*), 1 TAB PO DAILY, (Reported) Baclofen (Baclofen), 1 TABLET PO HS, (Reported) Buspirone Hcl* (Buspar*), 0.5 TAB PO TID, (Reported) Carvedilol (Coreg), 1 TAB PO Q12H, (Reported) Ranolazine (Ranolazine ER), 1 TAB PO BID, (Reported) Scheduled PRN Clonazepam* (Klonopin*), 1 MG PO Q8H PRN for anxiety, (Reported) Discontinued Medications Clopidogrel Bisulfate (Clopidogrel), 1 TAB PO DAILY, (Reported) Discontinued Reason: patient no longer taking Furosemide (Furosemide), 1 TAB PO DAILY, (Reported) Discontinued Reason: patient no longer taking Nitroglycerin SL* (Nitrostat SL*), 1 TAB SL Q5MIN PRN for Chest pain Q5min PRNx3-call MD, (Reported) Discontinued Reason: patient no longer taking Tamsulosin Hcl* (Flomax*), 2 CAP PO DAILY, (Reported) Discontinued Reason: patient no longer taking Past Medical History Past Medical History: High Cholesterol, Hypertension, COPD, GERD, BPH, Arthritis, Anxiety Past Surgical History: cholecystectomy Patient History: Bone cancer FAMILY/OTHER FH: diabetes mellitus FATHER FH: heart disease FATHER FH: leukemia FAMILY/OTHER Smoking Status: Current every day smoker Alcohol Use: None Drug Use: none Lives with: Spouse Lives In: Home Occupation: employed Additional Comment He smokes cigarettes for the past 20 years- 3 cigarettes per day but few years Back he was smoking a pack of cigarettes per day Review of Systems All Other Systems at this time: Reviewed and Negative ROS Reviewed in full and negative except positive pertinent as in HPI Physical Exam Vital Signs: Temperature: 98.0, Source: Temporal, Heart Rate: 107, Respiratory Rate: 16, BP: 203/89, Pulse Oximetry: 97, Weight: 86.800 Oxygen Flow Rate: 0 General Appearance: alert, no apparent distress Pupils/EOM/Fundus: PERRLA, EOM intact EENT: normal ENT inspection, moist mucous membranes Ear: auricle normal, canal normal, TMs normal Gag present: Yes Neck: normal inspection, full range of motion, supple, non-tender Respiratory: lungs clear, normal breath sounds, no respiratory distress Chest: no accessory muscle use, chest non-tender Cardiovascular: normal peripheral pulses, regular rate, rhythm, no edema, no gallop, no JVD, no murmur Gastrointestinal: normal palpation, non-tender, bowels sounds present Back: normal inspection, no CVA tenderness, no vertebral tenderness Extremities: normal inspection, normal capillary refill, no calf tenderness Orientation / Memory / CN Exam: oriented x3, memory intact, fish machine feeder II-XII nml as tested, normal hearing Motor / Sensory: no motor deficit, no sensory deficit, no pronator drift, negative Babinski's sign Coordination / Gait: normal finger to nose, normal gait, ABN nose to finger (R), ABN nose to finger (L) Reflexes: 2+ bicep (R), 2+ bicep (L), 2+ tricep (R), 2+ tricep (L), 2+ knee (R), 2+ knee (L); 1+ ankle (R), 1+ ankle (L) Psychiatric: appropriate Skin: warm/dry, normal color t-PA t-PA given w/in 2hrs?: No Reason t-PA not Given: Medical Contraindication Progress Results/Orders Results/Orders Orders - NAREN BALTAZAR MD Monitor (10/01/25 10:16) 2 Large Bore Ivs (10/01/25 10:16) Chest,Single View (10/01/25 10:16) Accucheck (10/01/25 10:16) Ct Stroke Alert (10/01/25 10:25) Lucky Prov.Neuro Consult (10/01/25 10:16) Completed Orders - OHLFS,NAREN Mccann MD Cbc/Diff (10/01/25 10:16) Electrocardiogram (10/01/25 10:16) Chest,Single View (10/01/25 10:16) Ct Stroke Alert (10/01/25 10:25) BMP (10/01/25 10:16) PTT (10/01/25 10:16) Pt Inr (10/01/25 10:16) Hgb A1c (10/01/25 10:33) Lipid Panel (10/01/25 10:33) MG (10/01/25 10:33) PBNP (10/01/25 10:33) PHOS (10/01/25 10:33) Vital Signs 10/01/25 10/01/25 10/01/25 10/01/25 10:12 11:02 12:10 12:15 Temp 98.0 99.4 97.5 Pulse 107 86 99 103 Resp 16 16 20 B/P (MAP) 203/89 156/77 (103) 213/94 (133) Pulse Ox 97 86 94 O2 Flow Rate 0 0 0 Laboratory Tests Test 10/01/25 10:19 10/01/25 10:33 Glucometer 131 H White Blood Count 12.2 H Red Blood Count 4.93 Hemoglobin 14.7 Hematocrit 42.7 Mean Corpuscular Volume 86.6 Mean Corpuscular Hemoglobin 29.9 Mean Corpuscular Hemoglobin Concent 34.5 Red Cell Distribution Width 13.7 Platelet Count 274 Mean Platelet Volume 8.8 Neutrophils (%) (Auto) 61.8 Lymphocytes (%) (Auto) 28.4 Monocytes (%) (Auto) 8.4 Eosinophils (%) (Auto) 1.2 Basophils (%) (Auto) 0.2 Neutrophils # (Auto) 7.5 Lymphocytes # (Auto) 3.5 Monocytes # (Auto) 1.0 H Eosinophils # (Auto) 0.2 Basophils # (Auto) 0.0 CBC Comment Prothrombin Time 10.7 INR International Normalized Ratio 1.0 Activated Partial Thromboplast Time 31 Coagulation Comments Sodium Level 141 Potassium Level 3.4 L Chloride Level 106 Carbon Dioxide Level 23.7 L Anion Gap 11 Blood Urea Nitrogen 12 Creatinine 1.05 Estimated GFR/1.73 m2 70 BUN/Creatinine Ratio 11.4 Glucose Level 117 H Hemoglobin A1c 5.3 Calcium Level 8.6 Phosphorus Level 2.8 Magnesium Level 1.9 Troponin I High Sensitivity 28 Pro-B-Type Natriuretic Peptide 177 H Albumin 3.7 Triglycerides Level 108 Cholesterol Level 140 LDL Cholesterol 94 HDL Cholesterol 34 L Cholesterol/HDL Ratio 4.1 Chemistry Comments Medical Decision Making Additional information obtaine: old records Findings Acute CVA Acute ischemic stroke with NIHSS score of 3 versus hypertensive emergency Initially level 2 stroke alert was called and patient was taken to CT head which ruled out hemorrhagic stroke and tele neurologist consultation was placed. Recommended for CT angiography head and neck, MRI brain, echocardiogram, lipid panel, A1c we ordered that. A [facility] tele neurologist recommended for aspirin 81 mg, Plavix 75 mg, on atorvastatin 80, For target systolic blood pressure of less than 180, we treated him with metoprolol 50 mg and we are not reducing drastically because of permissive hypertension. LDL target is less than 70 and we gave 80 mg of atorvastatin stat Follow up with the MRI head, echocardiogram, lipid panel, A1c EKG shows mild ST depressions in 2 3 AVF and we ordered troponin. Considered the differential diagnosis cerebrovascular accident secondary to acute ischemic stroke versus hypertensive emergency. Differential Dx:Considerations: Include: CVA, Encephalopathy, Hypoglycemia, Mass lesion Departure Time of Disposition: 12:19 Disposition: 09 ADMITTED INPATIENT Admitted to Inpatient Unit: to hospitalist Admission Level of Care: Neuro with Tele Impression: Primary Impression: Cerebrovascular accident Additional Impression: Acute ischemic stroke Condition: Stable Referrals: UNKNOWN,UNKNOWN (PCP) Education Educated: Patient, Family Educated regarding: diagnosis, treatment, prognosis, need for follow up Additional Comment Seen with PA/CHECK TOTALER The patient was seen with the medical staff physician the patient presents with difficulty with his speech lytes slurred speech and site trouble with the word finding evidently it started last night, family states he still has some trouble with word finding. The patient has a an otherwise unremarkable neurologic exam the patient has been seen by the tele neurologist I have discussed the case with the tele neurologist the patient has a history of hypertension but he is not taking his medications any longer, the patient will be given a dose of metoprolol, the neurologists feels the patient's blood pressure would be best under 180 systolic the patient will be admitted for a TIA CVA workup. The resid ent's note has been reviewed and I agree with the note and the assessment and plan as written. All aspects of the patient's care has been supervised by me. Prior hospitalizations has been reviewed. The patient's pulse oximetry was interpreted as adequate normal and the patient's prior hospitalizations has been reviewed. The patient's carriage feeder sinus rhythm. Patient is a 12 lead EKG demonstrates a sinus rhythm rate of 90 the patient does have a right bundle- branch block and nonspecific ST abnormalities with a normal axis time of interpretation 1036 Signature Scribe Signature: The note accurately reflects work and decisions made by me.Juan Sutton - Resident 10/01/25 12:22 Attestation: The note accurately reflects work and decisions made by me.Juan Sutton - Resident 10/01/25 12:22 JUAN SUTTON, RES Oct 01, 2025 10:25 NAREN BALTAZAR MD Oct 01, 2025 11:37
--- NOTE | 2025-10-01 10:36 | ELECTROCARDIOGRAPH REPORT ---
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 VIJAY David Measurements Intervals [place] Rate: 90 P: 66 MN: 146 QRS: 72 QRSD: 93 T: 70 QT: 369 QTc: 452 Interpretive Statements Sinus rhythm Probable left atrial enlargement RSR' in V1 or V2, right VCD or RVH Electronically Signed On 10-02-2025 17:26:[address] VIJAY David Please click the below link to view image of tracing.
[2025-10-01 10:47] LABS: MEAN PLATELET VOLUME 8.8 FL (7.4-10.4); RED CELL DISTRIBUTION WIDTH 13.7 % (11.5-14.5)
--- NOTE | 2025-10-01 10:48 | RADIOLOGY REPORT ---
EXAM: CT CT STROKE ALERT INDICATION: Stroke Alert TECHNIQUE: CT of the head without intravenous contrast. Coronal and sagittal reformatted images are submitted. Radiation Dose : 1. Head: CT Dose: CTDI volume is 62.8 mGy. Dose-length product is 1275.8 mGy*cm The dose indicators for CT are the volume Computed Tomography (CT) Dose Index (CTDIvol) and the Dose Length Product (DLP), and are measured in units of mGy and mGy-cm, respectively. These indicators are not patient dose, but values generated from the CT scanner acquisition factors. The report includes radiation exposure data for exposures received during this examination. All CT scans at this medical facility are performed using dose modulation techniques as appropriate to a performed exam including the following: Automated exposure control was utilized; adjustment of the MA and/or KV according to patient size; and use of iterative reconstruction technique. COMPARISON: None FINDINGS: There is no evidence of acute intracranial hemorrhage, extra-axial collection, mass effect, midline shift, herniation or hydrocephalus. Benign mineralization noted in the bilateral basal ganglia. The ventricles, sulci and cisterns are age appropriate. The kirk-white differentiation is intact. The visualized paranasal sinuses and mastoid air cells are clear. No depressed calvarial fracture. The surrounding soft tissues are unremarkable. IMPRESSION: 1. No evidence of acute intracranial abnormality. Critical result: Stroke alert Findings discussed with Dr. Bruner on 10/01/2025 at 1:[address] Rosado, with acknowledged receipt and understanding of the findings.
[2025-10-01 10:56] LABS: CREATININE 1.05 MG/DL (0.60-1.10); TOTAL CARBON DIOXIDE 23.7 MMOL/L (24-32); eCRCL 62 ML/MIN; eGFR 70 ML/MIN
--- NOTE | 2025-10-01 10:57 | CONSULTATION REPORT ---
History of Present Illness Providers to CC ~ Refering MD: Lino Allergies: Coded Allergies: codeine (Verified Allergy, Mild, ITCH, 01/28/23) Home Medications Home Medications Active Reported Ranolazine ER (Ranolazine) 500 Mg Tab.er.12h 1 Tab PO BID Nitrostat SL* (Nitroglycerin) 0.4 Mg Tablet 1 Tab SL Q5MIN PRN Coreg (Carvedilol) 3.125 Mg Tablet 1 Tab PO Q12H 30 Days Furosemide 20 Mg Tablet 1 Tab PO DAILY Clopidogrel (Clopidogrel Bisulfate) 75 Mg Tablet 1 Tab PO DAILY Baclofen 20 Mg Tablet 1 Tablet PO HS Flomax* (Tamsulosin HCl) 0.4 Mg Cap.sr.24h 2 Cap PO DAILY Lipitor* (Atorvastatin Calcium) 40 Mg Tablet 1 Tab PO DAILY Buspar* (Buspirone HCl) 10 Mg Tablet 0.5 Tab PO TID Klonopin* (Clonazepam) 1 Mg Tablet 1 Mg PO Q8H PRN Past Family History Family History: Bone cancer FAMILY/OTHER FH: diabetes mellitus FATHER FH: heart disease FATHER FH: leukemia FAMILY/OTHER Physical Exam Last Vital Signs Recorded: Temperature: 98.0, Source: Temporal, Heart Rate: 107, Respiratory Rate: 16, BP: 203/89, Pulse Oximetry: 97, Weight: 86.800 Results Diagram Lab Result Diagram: 10/01/25 1033 10/01/25 1033 Assessment/Plan Additional Plan [facility] Note # Demographics Consult Type: Acute Stroke Level 2 (4.5-24 hrs) Patient Location: Emergency Room First Name: ARTEM Last Name: RACHAEL Date of : 1960 Age: 65 Gender: Male Facility: [facility] Time of Initial Page (): 10/01/2025 10:47 First Contact with Site ( Time): 10/01/2025 10:47 # HPI History: 65 y/o M presents because family thinks he had a stroke. Family noticed speech changes. Symptoms started last night. "Maybe" had similar symptoms. No thinners. # Scores Time of exam and NIHSS (): 10/01/2025 10:50 Level of Consciousness 1a: [0] = Alert; keenly responsive LOC Questions 1b: [2] = Answers neither correctly LOC Commands 1c: [0] = Performs both tasks correctly Best Gaze 2: [0] = Normal Visual 3: [0] = No visual loss Facial Palsy 4: [0] = Normal symmetrical movements Motor Arm Left 5a: [0] = No drift Motor Arm Right 5b: [0] = No drift Motor Leg Left 6a: [0] = No drift Motor Leg Right 6b: [0] = No drift Limb Ataxia 7: [0] = Absent Sensory 8: [0] = Normal Best Language 9: [1] = Qrid-en-knbvwsae aphasia Dysarthria 10: [0] = Normal Extinction and Inattention 11: [0] = No abnormality NIHSS Total: 3 # Data Head CT: - no bleed - per radiologist read # Assessment Impression: - Ischemic Stroke (Acute) Stroke mimics also possible (including hypertensive emergency) # Plan Thrombolytic/Intervention: NOT IV Thrombolysis or IA Intervention candidate Thrombolytic Exclusion: > 4.5 hours Intraarterial Exclusion: - clinical exam not consistent with presence of large vessel occlusion (LVO), can reconsider if LVO found on vascular imaging Target Blood Pressure: SBP < 180 Labs: - hemoglobin A1c - lipid panel Imaging: (urgency: STAT): - CT Angiogram Head and CT Angiogram Neck AND call back with results if abnormal Imaging: (urgency: routine): - MRI Brain without contrast Diagnostic Test: - echo without bubble study Therapy/Evaluation: - PT/OT evaluation - speech/swallow consultation Medication: - aspirin 81 mg PO PLUS clopidogrel (Plavix) 75 mg PO daily for 21 days, then monotherapy thereafter - start statin with goal of LDL < 70 Other: - If patient has any neurological deterioration please call me back immediately - LDL < 70 - permissive hypertension - telemetry monitoring - I have discussed my recommendations with the referring provider Additional Recommendations: Extent of above to depend on test results and clinical course. # Logistics Attestation of consult completion: The patient is located at: [facility]. Facility staff participated in the visit. I performed this telemedicine visit from my offsite office utilizing interactive 2 way audio and visual telecommunication technology at the request of the onsite emergency room provider. Total time spent in telemedicine encounter: I spent 10 minutes reviewing clinical data and/or imaging, obtaining history, examining the patient, communicating with the onsite care team, and in preparation of this report. # Demographics First Name: ARTEM Last Name: RACHAEL Facility: [facility] VESNA RIGGS MD Oct 01, 2025 10:57
[2025-10-01 11:00] LABS: APTT 31 SECONDS (22-32); INR 1.0 INR
--- NOTE | 2025-10-01 11:10 | RADIOLOGY REPORT ---
CHEST RADIOGRAPH Indication: Stroke Alert Technique: Single frontal view of the chest was obtained COMPARISON: DI CHEST,SINGLE VIEW on DOS: 04/09/24, CHEST,SINGLE VIEW on DOS: 01/06/22, CHEST,SINGLE VIEW on DOS: 01/03/22, CHEST,SINGLE VIEW on DOS: 02/17/20 FINDINGS: Lines and Tubes: Median sternotomy Lungs: Congestion Pleura: No effusion. No pneumothorax. Cardiomediastinal contours: Unremarkable Bones: Unremarkable IMPRESSION: Increased interstital prominence. This may represent pulmonary vascular congestion and/or viral pneumonia. Clinical correlation advised.
[2025-10-01] MEDS: PERFLUTREN PROTEIN-A MICROSPHR (Optison) 0.22 MG/ML 3ML VIAL IV ONE (11:15)
[2025-10-01 11:51] LABS: CHOL/HDL RATIO 4.1 (0.00-4.99); LDL CHOLESTEROL 94 MG/DL (50-100)
[2025-10-01] MEDS: aspirin 81mg, enteric-coated 1 TAB TABLET.DR PO ONE (12:15)
--- NOTE | 2025-10-01 12:45 | RADIOLOGY REPORT ---
CT CTA NECK/HEAD INDICATION: Acute ischemic stroke TECHNIQUE: Volumetric multi-detector CT images of the head were obtained without administration of IV contrast.. CT angiography along with MIP and MPR images were obtained of the [place] arteries. CT angiography along with MIP and MPR images were obtained of the cervical carotid and vertebral arteries. All CT scans at this facility use dose modulation, iterative reconstruction, and/or weight based dosing when appropriate to reduce radiation dose to as low as reasonably achievable. 3-D postprocessing was performed on a separate workstation under radiologist supervision. IV CONTRAST: 100 mL of low osmolar intravenous iodinated contrast material was administered. COMPARISON: None FINDINGS: ANTERIOR CIRCULATION: Distal internal carotid arteries including the petrous, cavernous, and supraclinoid segments are patent bilaterally. Anterior cerebral arteries including the A1 and A2 segments are patent bilaterally. Anterior communicating artery patent without aneurysm formation. Middle cerebral arteries including the horizontal M1 and sylvian M2 are patent bilaterally. Posterior communicating arteries are seen bilaterally. POSTERIOR CIRCULATION: Posterior cerebral arteries are patent bilaterally. Right vertebral artery is dominant The intracranial segments of the vertebral arteries are patent bilaterally. The basilar artery is patent without aneurysm formation. The posterior inferior cerebellar arteries are patent bilaterally. CERVICAL VESSELS: The thoracic aortic arch is patent without evidence of aneurysmal dilatation or dissection. Suspected high-grade areas of greater than 90 percent stenosis of bilateral proximal internal carotid arteries secondary to mixed atherosclerotic plaque , somewhat limited evaluation secondary to patient motion. Mixed atherosclerotic plaque of the left subclavian and right brachiocephalic artery origins of the aortic arch. The cervical segments of the vertebral arteries are patent OTHER: The lung apices are clear. IMPRESSION: 1. No large vessel occlusion, aneurysmal dilatation, or dissection seen within the intracranial vessels. 2. Suspected high-grade areas of greater than 90 percent stenosis of bilateral proximal internal carotid arteries secondary to mixed atherosclerotic plaque , somewhat limited evaluation secondary to patient motion.
[2025-10-01] MEDS ORDERED: magnesium hydroxide 30ml (MOM) UD suspension PO PRN (14:05)
[2025-10-01] MEDS ORDERED: ondansetron/PF 4mg/2ml inj IV PRN (14:05)
[2025-10-01] MEDS ORDERED: magnesium sulf-water 4G/100mL 100 ML IV PRN (14:05)
[2025-10-01] MEDS ORDERED: potassium Cl 40MEQ/1/2NS 520ml 520 ML IV PRN (14:05)
[2025-10-01] MEDS ORDERED: magnesium sulf-water 2g/50mL 50 ML IV PRN (14:05)
[2025-10-01] MEDS ORDERED: magnesium Cl slow-release 64mg tablet PO PRN (14:05)
[2025-10-01] MEDS ORDERED: mag hydrox/Alum hydrox/simeth 30ml oral suspension PO PRN (14:05)
[2025-10-01] MEDS ORDERED: potassium Cl 20 mEq SR tablet PO PRN (14:05)
[2025-10-01 14:10] VITALS: BP 172/92; PULSE 62; RESP 18; TEMP 97.9; O2SAT 96
[2025-10-01 14:40] LABS: PHOSPHORUS 2.8 MG/DL (2.3-4.5); PRO BRAIN NATRIURETIC PEPTIDE 177 PG/ML (0-125)
--- NOTE | 2025-10-01 14:47 | HISTORY AND PHYSICAL-Residence ---
History & Physical Providers to CC Resident Creating Document: TERESA ZAMORA, RES CC: MARY JARRELL MD ~ History of Present Illness Primary Medical Doctor: Alt Reason for Admit\Complaint: Slurring of speech, to rule out CVA History of Present Illness 65-year-old male patient with past medical history of hypertension, CABG in 2023 was brought to the ED by his family. Patient's stated that patient was last normal yesterday, as per family patient was not coherent and could not complete a whole sentence yesterday. He also complained of severe headache rating the pain 10 on 10, bilateral throbbing kind of pain. Patient's stated that he was extremely incoherent yesterday and could not answer any basic questions as well. Patient also complained of chest pain which he had about two days ago, described the pain a 10 on 10 and said that it was radiating to his back, no aggravating factors and the pain relieved on its own. Patient denied any chief complaints of palpitations, sweating or syncope Patient has a history of hypertension, during his recent visit to his primary care doctor Dr. Landry, patient's blood pressure medication was discontinued as patient had soft blood pressures during the clinic visit. He was on amlodipine which was discontinued. 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 Landry Patient's boom man was Dr. Marshall, but recently was changed to Dr. Busby was Dr. Marshall has retired. Patient was supposed to visit last , but did not attend the appointment. Allergies: Coded Allergies: codeine (Verified Allergy, Mild, ITCH, 01/28/23) Home Medications Home Medications Active Reported Ranolazine ER (Ranolazine) 500 Mg Tab.er.12h 1 Tab PO BID Coreg (Carvedilol) 3.125 Mg Tablet 1 Tab PO Q12H 30 Days Baclofen 20 Mg Tablet 1 Tablet PO HS Lipitor* (Atorvastatin Calcium) 40 Mg Tablet 1 Tab PO DAILY Buspar* (Buspirone HCl) 10 Mg Tablet 0.5 Tab PO TID Klonopin* (Clonazepam) 1 Mg Tablet 1 Mg PO Q8H PRN Past Medical History Past Medical History Hypertension Muscle spasms Anxiety CABG in 2023 Past Surgical History Surgical History Comment Cholecystectomy CABG 2023 Hernia repair Family History Family History: Bone cancer FAMILY/OTHER FH: diabetes mellitus FATHER FH: heart disease FATHER FH: leukemia FAMILY/OTHER Past Social History Social History Comment Patient is a chronic smoker, quit smoking for nine months post his CABG surgery but continues to smoke one pack of cigarette per day- 50 pack years Patient used to be an alcoholic but stopped drinking about 25 years ago, he has a occasional alcohol consumption Patient denied any illicit drug use Smoking: Cigarettes Alcohol Use: None Drug Use: None Lives with: Spouse Lives In: Home Occupation: employed ROS All Other Systems: Reviewed and Negative ROS Constitutional: No fever, dizziness, weakness, no decrease in appetite HEENT: Normal vision. No sore throat, epistaxis, tinnitus Cardiovascular: No chest pain/discomfort, palpitations, syncope. no pedal edema Respiratory: No sob, cough,hemoptysis Gastrointestinal: No abdominal pain, nausea, vomiting. No diarrhea, melena. Genitourinary: No frquency, urgency, incontinence, nocturia. No dysuria, hematuria Musculoskeletal: Normal, no pains Endocrine: No fatigue, polydipsia, polyuria. No heat or cold intolerance Neurologic: No headache, vertigo. No weakness, numbness or tingling of extremities Psychiatric: No hallucinations/delusions, no anhedonia, no suicidal ideation Hematologic: No bruises Exam Vitals: Vital Signs Date Time Temp Pulse Resp B/P (MAP) Pulse Ox O2 Delivery O2 Flow Rate FiO2 10/01/25 12:56 97.8 74 19 169/83 (111) 93 0 General: General: Awake, oriented to person, place and time HEENT: Conjunctive are pink, sclerae clear, no icterus, pupil is equal in both sides, reactive to light, no ear discharge, no pharyngeal erythema or an edema. Neck: Supple, no JVD, no lymphadenopathy and thyromegaly. Chest: Equal air entry on both lungs, no additional sounds no rhonchi no wheezing at the moment. Sternal scar noted Cardiovascular: S1-S2 regular sinus rhythm and, regular rate, no gallops, no rubs, no murmurs Abdomen: No visible peristalsis, Bowel sounds present on auscultation, soft, no tenderness, no guarding, no rigidity Extremities: No obvious deformities, no pitting edema bilaterally, capillary refill intact, peripheral pulsations are intact on both sides Neurologic: Mental status: alert and conscious, oriented to place, person and time, preserved memory, mild aphasia Cranial nerves I-XII: Normal. Motor system: Preserved power, coordination, no evidenced involuntary movements, strength 5/5 in four extremities. Sensory system: Preserved temperature, pain and vibration sensation. 2+ deep tendon reflexes in biceps, triceps, quadriceps. Negative Babinski. Cerebellar: No nystagmus, dysdiadochokinesia, normal [id number] testing. Musculoskeletal: No joint swelling, deformities, inflammations, and no scoliosis and back tenderness Skin: Warm and dry. Dry oral mucosa. Diagnostic Data Last Recorded Lab Results: 10/01/25 1033 10/01/25 1033 Diagnostic Data: Laboratory Tests Test 10/01/25 10:33 Prothrombin Time 10.7 SECONDS (9.0-12.0) INR International Normalized Ratio 1.0 INR Activated Partial Thromboplast Time 31 SECONDS (22-32) Coagulation Comments Counseling Services Smoking & Tobacco Cessation: 3-10 Minutes (Discussed smoking cessation with the patient including the risk continued smoking with the patient including: lung cancer, stroke, heart attack and poor wound healing.) Advance Care Planning Advanced Care plannin - 30 Minutes (Spent 17 minutes of critical care time discussing advanced advanced care planning/resuscitative methods, patient decided he wanted to be a full code) Additional Plan Assessment 65-year-old male patient with past medical history of hypertension, CABG in 2023 was brought to the ED with a chief complaints of aphasia and headache. Patient is being currently evaluated for CVA Possible CVA-mild aphasia-NIHSS score 2 Hypertensive emergency As per family, patient was incoherent and could not complete a sentence yesterday In addition, patient also had bilateral throbbing type of headache Tele neurologist was consulted; as per their evaluation NIHSS score 3 On my examination, patient was alert and oriented, answered all questions with mild aphasia NIHSS score 2 CT head showed no acute intracranial abnormal, MRI head pending Head CTA reported high-grade areas of greater than 90 percent stenosis of bilateral proximal internal carotid arteries 2/2 mixed atherosclerotic plaque Patient was outside window for thrombolysis Patient received one time dose of aspirin, atorvastatin 80 mg and clopidogrel 75 mg in the ED Patient's blood pressure was elevated at 203/89 mmHg, received one time dose of metoprolol 50 mg Plan Permissive hypertension to be maintained, allow blood pressure 180/100 mmHg; Ordered neuro checks q.4h Consulted vascular surgeon Dr. Leung, awaiting recommendations Continue aspirin 81 mg atorvastatin 80 mg and clopidogrel 75 mg Ordered lipid panel and HbA1c, lipid panel ,follow up with MRI and echocardiogram Physical therapy orders in place Sepsis; Sirs criteria met heart rate >90, WBC more than 01746+ source of infection 2/2 possible pneumonia/viral infection Possible community-acquired pneumonia covering both Gram-positive,Gram-negative and atypical organisms Patient's chest x-ray shows pulmonary vascular congestion, WBC elevated at 12.2 Patient has a cough with sputum Plan Initiated the patient on sepsis fluid resuscitation 30 mL/kg body weight Ordered inflammatory markers Ordered COVID test Initiated the patient on IV ceftriaxone and azithromycin 500 mg p.o. daily Initiated the patient on Solu-Medrol 40 mg IV once daily Ordered sputum culture and Gram stain History of CABG in 2023 Possible chronic angina Patient is not on aspirin; held patient's home medication carvedilol to maintain permissive hypertension Continue patient's home medication ranolazine 500 mg b.i.d. Anxiety Patient has a history of anxiety; Continue his home medications buspirone 0.5 mg t.i.d., clonazepam 1 mg p.r.n. Muscle spasms Continue patient's home medication baclofen once med rec is done Active tobacco use Initiated the patient on nicotine patch 21 mg Other significant history Patient stated that he had two episodes of dizziness and had a fall recently No loss of consciousness was noted, possible orthostatic hypotension Ordered orthostatic vitals and echocardiogram Code Status: Full code DVT Prophylaxis: SCDs Lines/Tubes: PIV Nutrition: Heart healthy diet PT:yes Prognosis: Guarded Disposition: Follow up with the MRI, echocardiogram The above note has been reviewed and supervised by the senior resident PGY 2/PGY 3. Patient was seen and examined and discussed with attending physician Dr.BAWA Teresa Zamora MD Internal medicine resident,PGY-1 Date of Service: Oct 01, 2025 Billing Provider: MARY JARRELL MD, JAHNAVI, RES Oct 01, 2025 14:47
[2025-10-01 15:08] VITALS: RESP 18; O2SAT 96
[2025-10-01] MEDS: potassium Cl 20 mEq SR tablet PO PRN (15:28)
[2025-10-01] MEDS: CefTRIAXone/D5W-Rocephin 1gm 50 ML IV SCH (15:28)
[2025-10-01] MEDS: normal saline 1000ml 3,000 ML IV ONE (16:12)
--- NOTE | 2025-10-01 17:39 | CARDIOLOGY REPORT ---
APPROVED REPORT EXAM: Comprehensive 2D, Doppler, and color-flow Echocardiogram. Patient Location: [address] Blood Pressure: 172/92 mmHg Heart Rate: 60 bpm Rhythm: SINUS Indications TRANSIENT ISCHEMIC ATTACK HYPERLIPIDEMIA HYPERTENSION CAD, s/p CABG Supervisor Sewing Department: unknown Previous echo: none 2D Dimensions RVDd 3.8 cm IVSd 0.9 (0.7-1.1cm) LVDd 5.6 cm PWd 1.0 (0.7-1.1cm) IVSs 1.5 (0.8-1.2cm) LVDs 3.5 (2.5-4.0cm) PWs 1.6 (0.8-1.2cm) LVOT Diameter 1.96 (1.8-2.4cm) LVEF(%) 67.4 (>50%) Ao Asc Diam. 3.22 cm FS (%) 37.9 % SV 103.0 ml CO 5.6 L/min M-Mode Dimensions Left Atrium(MM) 3.79 (2.5-4.0cm) Aortic Root 3.91 (2.2-3.7cm) Aortic Cusp Exc 2.18 (1.5-2.0cm) Aortic Valve AoV Peak Dillon. 121.7 cm/s AoV VTI 27.1 cm AO Peak GR. 5.9 mmHg AO Mean GR. 3 mmHg LVOT VTI 28.76 cm LVOT Peak Dillon. 130.7 cm/s SARAH(VTI)/BSA 3.20 cm2/m2 SARAH (VTI) 3.20 cm2 AV DI 1.06 % Mitral Valve MV E Velocity 64.0 cm/s MV Peak Gr. 4 mmHg MV DECEL TIME 252 ms MV A Velocity 85.3 cm/s MV PHT 64 ms E/A Ratio 0.8 MVA (PHT) 3.44 cm2 MV VMax 99.6 cm/s TDI Medial E' P. V 9.45 cm/s E/Medial E' 6.8 Pulmonary Vein S1 Velocity 50.4 cm/s D2 Velocity 37.4 cm/s PVa Velocity 27.9 cm/s PVa Duration 100 msec LEFT VENTRICLE Normal LV size and wall thickness. Overall systolic function is normal. LVEF is 60-65%. RIGHT VENTRICLE RV is mildly dilated with normal systolic function. ATRIA The left atrium size is normal. AORTIC VALVE Trileaflet AV appears mildly sclerotic without stenosis or insufficiency. MITRAL VALVE Mild MV annular calcification without stenosis. Trace regurgitation. TRICUSPID VALVE TV appears structurally normal with trace regurgitation. PULMONIC VALVE Normal PV without stenosis, physiologic insufficiency. GREAT VESSELS Aortic root is dilated. Ascending aorta is normal in size. PERICARDIUM Normal pericardium. No effusion. Conclusion Normal LV size and wall thickness. Overall systolic function is normal. LVEF is 60-65%. RV is mildly dilated with normal systolic function. The left atrium size is normal. Trileaflet AV appears mildly sclerotic without stenosis or insufficiency. Mild MV annular calcification without stenosis. Trace regurgitation. TV appears structurally normal with trace regurgitation. Normal pericardium. No effusion.
[2025-10-01] MEDS: methylPREDNISolone sod succ/PF 40mg inj. IV SCH (17:48)
[2025-10-01 18:52] LABS: LEUKOCYTE ESTERASE ,URINE NEGATIVE (Neg); NITRITES, URINE NEGATIVE (Neg); OCCULT BLOOD,URINE NEGATIVE (Neg)
[2025-10-01 18:56] LABS: UA COLLECTION TYPE NON-SPECIFIED
[2025-10-01] MEDS: hydrALAZINE 20mg/ml inj. IV PRN (19:12)
[2025-10-01 19:30] VITALS: BP 178/71
--- NOTE | 2025-10-01 19:56 | PROGRESS NOTE ---
Progress Note ID Providers to CC ~ Progress Note Progress Note: pt awaiting mri-needs keivn in am BAYLEE COLÓN MD Oct 01, 2025 19:56
[2025-10-01 20:00] VITALS: BP_SYST 170; BP_SYST 186; BP_SYST 191; BP_DIAS 62; BP_DIAS 80; BP_DIAS 84; PULSE 65; PULSE 67; PULSE 68; RESP 18
[2025-10-01] MEDS: K and/or MAG REPLACEMENT MC SCH (20:00)
[2025-10-01] MEDS ORDERED: metoprolol tartrate 1mg/ml inj IV PRN (20:00)
[2025-10-01] MEDS ORDERED: aminophylline 250mg/10ml inj. IV PRN (20:00)
[2025-10-01] MEDS: docusate sod 100mg capsule PO SCH (20:49)
--- NOTE | 2025-10-01 21:01 | RADIOLOGY REPORT ---
MRI BRAIN WITHOUT CONTRAST History: Acute ischemic stroke Comparison: CT CTA NECK/HEAD on DOS: 10/01/25 Technique: Multi-sequence, multiplanar magnetic resonance images of the brain are reviewed. Findings: No acute hemorrhage or infarct is seen. Scattered T2/FLAIR hyperintense foci in the periventricular and subcortical white matter, suggestive of chronic microvascular disease. The ventricles and sulci are mildly enlarged, compatible with generalized parenchymal volume loss. There is no evidence of mass or mass effect. There are no abnormal extra-axial fluid collections. The major intracranial blood vessels retain normal flow voids consistent with their patency. Trace mucosal thickening of the paranasal sinuses. Trace mastoid air cell effusion. IMPRESSION: No acute infarct or hemorrhage. Mild chronic microvascular ischemic changes.
[2025-10-01 21:56] VITALS: BP 139/62; PULSE 75; RESP 18; TEMP 98; O2SAT 95
[2025-10-01] MEDS: ranolazine 500mg SR tablet (Q12H) PO SCH (21:57)
[2025-10-02] VITALS (15 sets, daily range): BP systolic 105–169; BP diastolic 61–96; PULSE 79–99; RESP 14–22; TEMP 97.5–97.8; O2SAT 94–98
[2025-10-02 04:58] LABS: MEAN PLATELET VOLUME 8.9 FL (7.4-10.4); RED CELL DISTRIBUTION WIDTH 13.5 % (11.5-14.5)
[2025-10-02 05:14] LABS: CREATININE 0.86 MG/DL (0.60-1.10); TOTAL CARBON DIOXIDE 24.2 MMOL/L (24-32); eCRCL 75 ML/MIN; eGFR 89 ML/MIN
[2025-10-02] MEDS: nicotine 21mg patch - 24 hr TD SCH (08:00)
[2025-10-02] MEDS: aspirin 81mg, enteric-coated 1 TAB TABLET.DR PO SCH (08:00)
[2025-10-02] MEDS: regadenoson 0.4mg/5ml syringe IV PRN (08:46)
--- NOTE | 2025-10-02 10:05 | RADIOLOGY REPORT ---
HISTORY: preop TECHNIQUE: At peak stress, 34.6 mCi of sestamibi was administered intravenously. Soon thereafter, gated SPECT imaging of the heart was performed with the patient in the supine position. At rest, 8.6 mCi of sestamibi was administered intravenously. Soon thereafter, gated SPECT imaging of the heart was performed with the patient in the supine position. FINDINGS: The left ventricular myocardium demonstrates uniform radiotracer distribution, without perfusion defect. The left ventricular cavity is normal in size. Calculated LVEF is 72 %. No segmental wall motion abnormality. IMPRESSION: NORMAL MYOCARDIAL PERFUSION EXAM. LVEF 72 %.
--- NOTE | 2025-10-02 12:15 | PROGRESS NOTE- Residence ---
Progress Note - Resident Providers to CC Resident Creating Document: TERESA ZAMORA RES CC: MARY JARRELL MD ~ Antibiotic Timeout Antibiotic Ordered?: Yes Subjective Patient was seen and examined at bedside, his diagnosis, his imaging was explained to the patient and his son. Patient appeared well hydrated compared to yesterday. He still continues to have brain fog and mild distraction while talking. As per family this is not patient's baseline Objective Vital Signs Date Time Temp Pulse Resp B/P (MAP) Pulse Ox O2 Delivery O2 Flow Rate FiO2 10/02/25 10:41 97.7 86 18 133/80 (97) 94 Room Air 10/02/25 09:03 0.0 10/01/25 21:56 21 Result Diagram: 10/02/25 0434 10/02/254 General: Awake, oriented to person, place and time HEENT: Conjunctive are pink, sclerae clear, no icterus, pupil is equal in both sides, reactive to light, no ear discharge, no pharyngeal erythema or an edema. Neck: Supple, no JVD, no lymphadenopathy and thyromegaly. Chest: Equal air entry on both lungs, no additional sounds no rhonchi no wheezing at the moment. Sternal scar noted Cardiovascular: S1-S2 regular sinus rhythm and, regular rate, no gallops, no rubs, no murmurs Abdomen: No visible peristalsis, Bowel sounds present on auscultation, soft, no tenderness, no guarding, no rigidity Extremities: No obvious deformities, no pitting edema bilaterally, capillary refill intact, peripheral pulsations are intact on both sides Neurologic: Mental status: alert and conscious, oriented to place, person and time, preserved memory, mild aphasia Cranial nerves I-XII: Normal. Motor system: Preserved power, coordination, no evidenced involuntary movements, strength 5/5 in four extremities. Sensory system: Preserved temperature, pain and vibration sensation. 2+ deep tendon reflexes in biceps, triceps, quadriceps. Negative Babinski. Cerebellar: No nystagmus, dysdiadochokinesia, normal [id number] testing. Musculoskeletal: No joint swelling, deformities, inflammations, and no scoliosis and back tenderness Skin: Warm and dry. Dry oral mucosa. Coagulation Studies Laboratory Tests Test 10/01/25 10:33 Prothrombin Time 10.7 SECONDS (9.0-12.0) INR International Normalized Ratio 1.0 INR Activated Partial Thromboplast Time 31 SECONDS (22-32) Coagulation Comments Advance Care Planning Advanced Care plannin - 30 Minutes Plan Plan Assessment 65-year-old male patient with past medical history of hypertension, CABG in 2023 was brought to the ED with a chief complaints of aphasia and headache. Patient is being currently evaluated for CVA CVA RULED OUT, NIHSS score 0 Possible TIA 2/2 Bilateral high-grade stenosis of internal carotid artery> 90% secondary to mixed atherosclerotic plaque Significant family history of cardiac conditions Active tobacco use Hypertensive emergency Patient has symptoms of difficulty concentrating, brain fog, headache and two drop attacks without loss of consciousness possibly due to bilateral carotid artery stenosis CT head showed no acute intracranial abnormal, MRI head reported mild chronic microvascular changes Head CTA reported high-grade areas of greater than 90 percent stenosis of bilateral proximal internal carotid arteries 2/2 mixed atherosclerotic plaque Lipid panel normal, HGB A1c normal; Lexiscan was negative with EF of 70% Echocardiogram reported normal systolic function with EF of 60-65% Consulted vascular surgeon Dr. Leung, he recommended Lexiscan, Lexiscan was negative, EF of 70% Dr. Salcedo recommended left CEA on Wednesday Plan Permissive hypertension to be maintained, allow blood pressure 180/100 mmHg; Ordered neuro checks q.4h Continue aspirin 81 mg atorvastatin 80 mg and clopidogrel 75 mg Physical therapy orders in place Sepsis; Sirs criteria met heart rate >90, WBC more than 38993+ source of infection 2/2 possible pneumonia/viral infection Possible community-acquired pneumonia covering both Gram-positive,Gram-negative and atypical organisms Patient's chest x-ray shows pulmonary vascular congestion, WBC downtrending is at 11 today Patient received fluid resuscitation for sepsis Patient has a cough with sputum; inflammatory markers negative Plan Continue the patient on IV ceftriaxone,azithromycin 500 mg p.o. daily and Solu- Medrol 40 mg IV once daily Ordered sputum culture and Gram stain History of CABG in 2023 Possible chronic angina Patient is not on aspirin; held patient's home medication carvedilol to maintain permissive hypertension Continue patient's home medication ranolazine 500 mg b.i.d. Anxiety Patient has a history of anxiety; Continue his home medications buspirone 0.5 mg t.i.d., clonazepam 1 mg p.r.n. Muscle spasms Continue patient's home medication baclofen Active tobacco use Continue the patient on nicotine patch 21 mg Code Status: Full code DVT Prophylaxis: SCDs Lines/Tubes: PIV Nutrition: Heart healthy diet PT:yes Prognosis: Guarded Disposition: Patient will undergo left CEA on Wednesday by The above note has been reviewed and supervised by the senior resident PGY 2/PGY 3. Patient was seen and examined and discussed with attending physician Dr.BAWA Teresa Zamora MD Internal medicine resident,PGY-1 Date of Service: Oct 02, 2025 Billing Provider: MARY JARRELL MD, JAHNAVI, RES Oct 02, 2025 12:15
--- NOTE | 2025-10-02 12:31 | PROGRESS NOTE ---
Progress Note ID Providers to CC ~ Progress Note Progress Note: pt seen and examined-mri noted/kevin noted-pt scheduled for left cea fri- consult dictated BAYLEE COLÓN MD Oct 02, 2025 12:31
--- NOTE | 2025-10-03 00:23 | CONSULTATION ---
DATE OF CONSULTATION: 10/02/2025 DICTATING PHYSICIAN: Doron Salcedo MD REASON FOR CONSULTATION: Evaluation of abnormal CTA. HISTORY OF PRESENT ILLNESS: The patient is a 65-year-old male with a history of coronary artery disease, hypertension, and ongoing tobacco use with complaints of slurring of speech. As part of his workup, he had a CTA of the head and neck, which revealed critical bilateral ICA stenosis. Surgical options are now requested and further questioning. The patient states his speech is back to baseline. He denies any lateralizing weakness in the upper or lower extremities. Denies history of previous CVA. Continues to smoke. He has a history of coronary artery disease, had a previous CABG in 2023. No residual visual or extremity symptoms. PAST MEDICAL HISTORY: Hypertension, anxiety, coronary artery disease, history of muscle spasms. PAST SURGICAL HISTORY: CABG in 2023, previous cholecystectomy, hernia repair. HOME MEDICATIONS: Coreg, Bactrim, Lipitor, BuSpar, Klonopin, ranolazine. ALLERGIES: CODEINE. SOCIAL HISTORY: Ongoing tobacco use. Remote history of alcohol use. No drug use. REVIEW OF SYSTEMS: Unremarkable as mentioned above. PHYSICAL EXAMINATION: GENERAL: Well-nourished male in minimal distress at the present time. VITAL SIGNS: Blood pressure 162/67, pulse 92, O2 saturation 96 on room air. HEENT: No facial asymmetry. HEART: Regular rate and rhythm without rubs or murmur. LUNGS: Clear to auscultation. ABDOMEN: Benign. EXTREMITIES: Reveal no pedal edema. NEUROLOGIC: Shows no lateralizing signs at the present time. LABORATORY DATA: White count of 11, hematocrit of 45, platelet count 280. Chemistries, BUN and creatinine of 13 and 0.86, cholesterol 140. IMAGING STUDIES: * Cardiac echo reveals an ejection fraction of 55% with normal LV size. No significant valvular disease. * Head CT unremarkable. * MRI from 10/01/2025 there is no acute infarct or hemorrhage. Mild chronic microvascular ischemic changes noted. * Betsy, normal myocardial perfusion scan with an ejection fraction of 72%. * CTA of head and neck reveals carotids bilaterally with patent vertebral arteries. IMPRESSION: * Probable transient ischemic attack with subsequent resolution of symptoms based on MRI findings. * The patient has bilateral high-grade critical ICA stenosis. * Coronary artery disease status post coronary artery bypass graft with normal Betsy. * Hypertension. * Hyperlipidemia. * History of muscle spasms. RECOMMENDATIONS: Left carotid endarterectomy over the course of the next few days followed by a right carotid endarterectomy in approximately 4-6 weeks. Continue aspirin and Plavix. Doron Salcedo MD TID: [id number] RECEIPT: [id number] KB/UDD
[2025-10-03 02:00] VITALS: BP 143/73; PULSE 91; RESP 13; TEMP 97.7; O2SAT 95
[2025-10-03 05:44] LABS: MEAN PLATELET VOLUME 8.9 FL (7.4-10.4); RED CELL DISTRIBUTION WIDTH 13.8 % (11.5-14.5)
[2025-10-03 06:00] VITALS: BP 128/78; PULSE 79; RESP 15; TEMP 97.8; O2SAT 96
[2025-10-03 06:02] LABS: CREATININE 0.93 MG/DL (0.60-1.10); TOTAL CARBON DIOXIDE 25.0 MMOL/L (24-32); eCRCL 70 ML/MIN; eGFR 81 ML/MIN
[2025-10-03 08:00] VITALS: RESP 16; O2SAT 96
[2025-10-03 10:00] VITALS: BP 131/72; PULSE 82; RESP 15; TEMP 97.8; O2SAT 96
[2025-10-03] MEDS ORDERED: lactobacillus rhamnosus 10,000 MMU CELLS/CAPSULE PO SCH (10:40)
[2025-10-03] MEDS ORDERED: CEFD300C3 PO (12:41)
[2025-10-03] MEDS ORDERED: ATOR40TA PO (12:41)
[2025-10-03] MEDS ORDERED: ASPI-1071 PO (12:41)
[2025-10-03] MEDS ORDERED: CLOP75TA34 PO (12:41)
[2025-10-03] MEDS ORDERED: GUAI100L97 PO (12:41)
[2025-10-03] MEDS ORDERED: PRED10TA PO (12:41)
[2025-10-03] MEDS ORDERED: LACT1CAP26 PO (12:41)
--- NOTE | 2025-10-03 15:11 | DISCHARGE SUMMARY-Residence ---
Discharge Summary Providers to CC Resident Creating Document: TERESA ZAMORA, TYREE CC: MARY JARRELL MD ~ Discharge Summary Admission Diagnosis: CVA Hospital Course DATE OF ADMISSION: 10/01/2025 DATE OF DISCHARGE: 10/03/2025 Discharge Diagnosis\Comment: CVA RULED OUT, NIHSS score 0 Possible TIA 2/2 Bilateral high-grade stenosis of internal carotid artery> 90% secondary to mixed atherosclerotic plaque Significant family history of cardiac conditions Active tobacco use Hypertensive emergency Sepsis; Sirs criteria met heart rate >90, WBC more than 13137+ source of infection 2/2 possible pneumonia/viral infection Possible community-acquired pneumonia covering both Gram-positive,Gram-negative and atypical organisms History of CABG in 2023 Anxiety Muscle spasms Active tobacco use Operations\Procedures: None Consultants: Teleneurologist-[facility]- Dr.Adam Maher Vascular surgeon Complications: None Condition on DC: Stable New Medications: Cefdinir* (Cefdinir*) 300 Mg Capsule 1 CAP PO Q12H for 4 Days, #8 CAP Guaifenesin (Guaifenesin) 100 Mg/5 Ml Liquid 5 ML PO Q6H for cough for 3 Days, #120 ML 0 Refills Lactobacillus Rhamnosus (Culturelle) 10 Billion Cell Capsule 1 CAP PO DAILY for 30 Days, #30 CAP 0 Refills Prednisone (Prednisone) 10 Mg Tablet 0 PO DAILY, #20 TABLET Take 3 daily x3 days 2 daily x3 days 1 daily x3 days 1/2 daily x3 days then STOP Aspirin (Ecotrin*) 81 Mg Tablet.dr 1 TAB PO DAILY for 30 Days, #30 TAB.SR Clopidogrel Bisulfate (Clopidogrel) 75 Mg Tablet 75 MG PO DAILY for 30 Days, #30 TAB Do not stop medication unless instructed by prescriber. Changed Medications: Atorvastatin Calcium* (Lipitor*) 40 Mg Tablet 80 MG PO DAILY for 30 Days, #60 TAB (Changed from: 1 TAB) Continued Medications: Baclofen (Baclofen) 20 Mg Tablet 1 TABLET PO HS, 2 Refills Buspirone Hcl* (Buspar*) 10 Mg Tablet 0.5 TAB PO TID Carvedilol (Coreg) 3.125 Mg Tablet 1 TAB PO Q12H for 30 Days, #60 TAB Clonazepam* (Klonopin*) 1 Mg Tablet 1 MG PO Q8H PRN for anxiety Ranolazine (Ranolazine ER) 500 Mg Tab.er.12h 1 TAB PO BID Discharge Summary: HPI as per admitting physician 65-year-old male patient with past medical history of hypertension, CABG in 2023 was brought to the ED by his family. Patient's stated that patient was last normal yesterday, as per family patient was not coherent and could not complete a whole sentence yesterday. He also complained of severe headache rating the pain 10 on 10, bilateral throbbing kind of pain. Patient's stated that he was extremely incoherent yesterday and could not answer any basic questions as well. Patient also complained of chest pain which he had about two days ago, described the pain a 10 on 10 and said that it was radiating to his back, no aggravating factors and the pain relieved on its own. Patient denied any chief complaints of palpitations, sweating or syncope Patient has a history of hypertension, during his recent visit to his primary care doctor Dr. Landry, patient's blood pressure medication was discontinued as patient had soft blood pressures during the clinic visit. He was on amlodipine which was discontinued. Patient's primary care doctor is Dr. Landry Patient's wardrobe consultant was Dr. Marshall, but recently was changed to Dr. Busby was Dr. Marshall has retired. Patient was supposed to visit last , but did not attend the appointment. Hospital course 65-year-old male patient with past medical history of hypertension, CABG in 2023 was brought to the ED by his family. Patient's stated that patient was last normal yesterday, as per family patient was not coherent and could not complete a whole sentence. Stroke alert was called and the patient, teleneurologist was consulted. Head CT showed no acute intracranial abnormality; initially patient's NIHSS score was three on evaluation of the couple of hours his NIHSS score was 0. We initiated the patient on high dose atorvastatin, clopidogrel and he received aspirin full dose. Patient's MRI was negative for any acute stroke. Patient underwent a head CTA which reported high- grade areas of greater than 90% stenosis of bilateral proximal internal carotid arteries secondary to mixed atherosclerotic plaque, vascular surgeon was consulted. Patient underwent Lexiscan as a preop requirement for possible surgery, Lexiscan was negative his EF was 70%. recommended left CEA on 10/05/2025 and right CEA 4-6 weeks later. Patient was persistent he wanted to go home and come back for the surgery on Wednesday. We reconsulted Dr. Leung who agreed with the plan. In addition patient, also met SIRS criteria and had mild pulmonary vascular congestion with elevated white count, likely secondary to possible pneumonia. We initiated the patient on resuscitation for sepsis and started the patient on ceftriaxone and azithromycin. Patient also received IV Solu-Medrol 40 mg once daily during his stay, which further improved his congestion. Patient has a history of CABG in 2023 and has a possible chronic angina-we continued patient's home medication ranolazine 500 mg b.i.d. we held patient's home medication carvedilol to maintain permissive hypertension. Patient has a history of anx iety we continued his home medication buspirone 0.5 mg t.i.d. and clonazepam 1 mg p.r.n.. Patient has a longstanding history of back pain muscle spasms we continued his home medication baclofen. Patient is an active smoker and continues to smoke, we recommended strict cessation and initiated the patient on nicotine 21 mg patch. On discharge, we emphasized to the patient and his family the importance of taking aspirin and Plavix. Significant imaging Echocardiogram 10/01/2025 Normal LV size and wall thickness. Overall systolic function is normal. LVEF is 60-65%. RV is mildly dilated with normal systolic function. The left atrium size is normal. Trileaflet AV appears mildly sclerotic without stenosis or insufficiency. Mild MV annular calcification without stenosis. Trace regurgitation. TV appears structurally normal with trace regurgitation. Normal pericardium. No effusion. Chest x-ray 10/01/2025 Increased interstital prominence. This may represent pulmonary vascular congestion and/or viral pneumonia. Clinical correlation advised. Head CT 10/01/2025 No evidence of acute intracranial abnormality. Head/neck CT 10/01/2025 1. No large vessel occlusion, aneurysmal dilatation, or dissection seen within the intracranial vessels. 2. Suspected high-grade areas of greater than 90 percent stenosis of bilateral proximal internal carotid arteries secondary to mixed atherosclerotic plaque , somewhat limited evaluation secondary to patient motion. Head MRI 10/01/2025 No acute infarct or hemorrhage. Mild chronic microvascular ischemic changes. Cardiac imaging NM 10/02/2025 NORMAL MYOCARDIAL PERFUSION EXAM. LVEF 72 %. Physical examination the time of discharge General: Awake, oriented to person, place and time HEENT: Conjunctive are pink, sclerae clear, no icterus, pupil is equal in both sides, reactive to light, no ear discharge, no pharyngeal erythema or an edema. Neck: Supple, no JVD, no lymphadenopathy and thyromegaly. Chest: Equal air entry on both lungs, no additional sounds no rhonchi no wheezing at the moment. Sternal scar noted Cardiovascular: S1-S2 regular sinus rhythm and, regular rate, no gallops, no rubs, no murmurs Abdomen: No visible peristalsis, Bowel sounds present on auscultation, soft, no tenderness, no guarding, no rigidity Extremities: No obvious deformities, no pitting edema bilaterally, capillary refill intact, peripheral pulsations are intact on both sides Neurologic: Mental status: alert and conscious, oriented to place, person and time, preserved memory, mild aphasia Cranial nerves I-XII: Normal. Motor system: Preserved power, coordination, no evidenced involuntary movements, strength 5/5 in four extremities. Sensory system: Preserved temperature, pain and vibration sensation. 2+ deep tendon reflexes in biceps, triceps, quadriceps. Negative Babinski. Cerebellar: No nystagmus, dysdiadochokinesia, normal [id number] testing. Musculoskeletal: No joint swelling, deformities, inflammations, and no scoliosis and back tenderness Skin: Warm and dry. Dry oral mucosa. Vital Signs Date Time Temp Pulse Resp B/P (MAP) Pulse Ox O2 Delivery O2 Flow Rate FiO2 10/03/25 10:00 97.8 82 15 131/72 (91) 96 Room Air 10/03/25 08:00 0.0 10/02/25 06:00 21 Laboratory Tests Test 10/01/25 18:10 10/02/25 04:34 10/03/25 05:29 10/03/25 08:31 Urine Specimen Description Non-specified Urine Color Straw Urine Clarity Clear Urine pH 7.5 Urine Specific [place] <=1.005 Urine Protein Negative mg/dl Urine Glucose (UA) Negative mg/dl Urine Ketones Negative mg/dl Urine Occult Blood Negative Urine Nitrite Negative Urine Bilirubin Negative Urine Urobilinogen 0.2 E.U/dL Urine Leukocyte Esterase Negative Urine Culture Indicated Not ind Volume Urine Centrifuged 10 ml Urine Comment White Blood Count 11.1 X10'3 16.6 X10'3 Red Blood Count 5.15 X10'6 4.97 X10'6 Hemoglobin 15.3 g/dl 14.9 g/dl Hematocrit 45.1 % 43.6 % Mean Corpuscular Volume 87.6 FL 87.7 FL Mean Corpuscular Hemoglobin 29.6 PG 29.9 PG Mean Corpuscular Hemoglobin Concent 33.8 g/dL 34.1 g/dL Red Cell Distribution Width 13.5 % 13.8 % Platelet Count 280 X10'3 258 X10'3 Mean Platelet Volume 8.9 FL 8.9 FL Neutrophils (%) (Auto) 78.5 % 65.0 % Lymphocytes (%) (Auto) 16.3 % 23.8 % Monocytes (%) (Auto) 4.1 % 10.0 % Eosinophils (%) (Auto) 0 % 0.1 % Basophils (%) (Auto) 1.1 % 1.1 % Neutrophils # (Auto) 8.7 X10'3 10.8 X10'3 Lymphocytes # (Auto) 1.8 X10'3 4.0 X10'3 Monocytes # (Auto) 0.5 X10'3 1.7 X10'3 Eosinophils # (Auto) 0.0 X10'3 0.0 X10'3 Basophils # (Auto) 0.1 X10'3 0.2 X10'3 CBC Comment Sodium Level 140 MMOL/L 140 MMOL/L Potassium Level 4.9 MMOL/L 4.3 MMOL/L Chloride Level 109 MMOL/L 107 MMOL/L Carbon Dioxide Level 24.2 MMOL/L 25.0 MMOL/L Anion Gap 7 8 Blood Urea Nitrogen 13 MG/DL 16 MG/DL Creatinine 0.86 MG/DL 0.93 MG/DL Estimated GFR/1.73 m2 89 ML/MIN 81 ML/MIN BUN/Creatinine Ratio 15.1 17.2 Glucose Level 113 MG/DL 99 MG/DL Calcium Level 8.4 MG/DL 8.7 MG/DL Magnesium Level 2.0 MG/DL 2.2 MG/DL Total Bilirubin 0.8 MG/DL 0.7 MG/DL Aspartate Amino Transf (AST/SGOT) 23 U/L 25 U/L Alanine Aminotransferase (ALT/SGPT) 18 U/L 20 U/L Alkaline Phosphatase 169 IU/L 140 IU/L Total Protein 7.1 G/DL 6.9 G/DL Albumin 3.6 G/DL 3.5 G/DL Globulin 3.5 G/DL 3.4 G/DL Albumin/Globulin Ratio 1.0 1.0 Chemistry Comments Erythrocyte Sedimentation Rate 7 MM/HR Lactic Acid Level 0.6 MMOL/L C-Reactive Protein < 0.05 MG/DL Procalcitonin < 0.05 NG/ML Discharge advise You have an appointment for a scheduled surgery with Dr. Leung on 10/05/2025 at 9:00 a.m. Please continue aspirin 81 mg, Plavix 75 mg and atorvastatin 80 mg Strict smoking cessation recommended Do not recommend driving Keep a log of your blood pressure readings Discharging you with three days of antibiotics,probiotics and cough syrup. Continue your steroid medications as prescribed, which will help with the your cough and lung congestion Return to ED in case of any symptoms of sudden weakness/numbness/slurred speech or vision loss *Problems/Diagnosis: (1) Carotid artery disease Total Time Spent on D/C: Up to 30 Minutes Date of Service: Oct 03, 2025 Billing Provider: MARY JARRELL MD, JAHNAVI, RES Oct 03, 2025 14:50
[2025-10-04] MEDS ORDERED: ATOR40TA72 PO (10:18)
[2025-10-04] MEDS ORDERED: CLOP-32 PO (10:18)
[2025-10-04] MEDS ORDERED: ASPI-612 PO (10:18)
[2025-10-04] MEDS ORDERED: CEFD300C3 PO (10:18)
[2025-10-04] MEDS ORDERED: GUAI100L97 PO (10:18)
[2025-10-04] MEDS ORDERED: PRE5T PO (10:20)
== END 2025-10-03 13:15 | disposition home or self-care (01) | DRG 871 ==
LOC: ER 09:49 → ED HOLD 12:44 → ORTHO 4S 14:06
PROVIDERS: ADMIT Family Medicine; ATTEND Family Medicine
PROC: B3251ZZ Computerized Tomography (CT Scan) of Bilateral Common Carotid Arteries using Low Osmolar Contrast (ICD-10-PCS; 2025-10-01)
PROC: B32G1ZZ Computerized Tomography (CT Scan) of Bilateral Vertebral Arteries using Low Osmolar Contrast (ICD-10-PCS; 2025-10-01)
PROC: B32R1ZZ Computerized Tomography (CT Scan) of Intracranial Arteries using Low Osmolar Contrast (ICD-10-PCS; 2025-10-01)
PROC: B3281ZZ Computerized Tomography (CT Scan) of Bilateral Internal Carotid Arteries using Low Osmolar Contrast (ICD-10-PCS; 2025-10-01)
PROC: 4A02XM4 Measurement of Cardiac Total Activity, External Approach (ICD-10-PCS; principal; 2025-10-02)
PROC: 3E033HZ Introduction of Radioactive Substance into Peripheral Vein, Percutaneous Approach (ICD-10-PCS; 2025-10-02)
DX: A41.9 Sepsis, unspecified organism (principal); J12.89 Other viral pneumonia; J15.69 Pneumonia due to other Gram-negative bacteria; J15.9 Unspecified bacterial pneumonia; J15.8 Pneumonia due to other specified bacteria; I16.1 Hypertensive emergency; J44.0 Chronic obstructive pulmonary disease with (acute) lower respiratory infection; I65.23 Occlusion and stenosis of bilateral carotid arteries; J44.9 Chronic obstructive pulmonary disease, unspecified; E78.00 Pure hypercholesterolemia, unspecified; I10 Essential (primary) hypertension; I25.10 Atherosclerotic heart disease of native coronary artery without angina pectoris; N40.0 Benign prostatic hyperplasia without lower urinary tract symptoms; M62.838 Other muscle spasm; F17.210 Nicotine dependence, cigarettes, uncomplicated; F41.9 Anxiety disorder, unspecified; K21.9 Gastro-esophageal reflux disease without esophagitis; Z88.5 Allergy status to narcotic agent; Z95.1 Presence of aortocoronary bypass graft; Z79.899 Other long term (current) drug therapy; Z90.49 Acquired absence of other specified parts of digestive tract
CPT/HCPCS: 36415; 70450; 70496; 70498; 70551; 71045; 78452; 80048; 80053; 80061; 81003; 82948; 83036; 83605; 83735; 83880; 84100; 84145; 84484; 85025; 85610; 85651; 85730; 86140; 87081; 93005; 93017; 93306; 96365; 99285; A9500; G0378; J0360; J0696; J2785; J2919; J7030; J7040; Q9967